=== PATIENT | male | born 1955 | race Caucasian/White ===

== ENCOUNTER → 2016-06-22 | Outpatient (CLI) | payer MEDICARE ==
[~2016-06-22] VITALS: Ht 180.3 cm; Wt 68.0 kg
[~2016-06-22] MED LIST: ASCO25TA PO; BACT800T5 PO; CALC600T21 PO; FOLI1TAB2 PO; LIDOCAINE 2% INJ 100 MG/5 ML SDV (FOR ANES.) As Ordered ONE; NS 1,000 ML IV SCH; OMEP40CA2 PO; PRED5TA PO; PROPOFOL 200 MG/20 ML VIAL As Ordered ONE; RITU10VLL IV; VITA100054 PO
--- NOTE | 2016-06-22 13:17 | ROOR ---
Patient Name: Chris Pearson Procedure Date: 06/22/2016 1:05 PM Date of : 1955 Age: 60 Room: [facility] Gender: Male Note Status: Finalized Procedure: Upper GI endoscopy Indications: Surveillance for malignancy due to personal history of Lobato's esophagus, Heartburn Providers: Telly NICOLE MD Referring MD: Kandice Marlow DO Requesting Provider: Medicines: Monitored Anesthesia Care Complications: No immediate complications. Procedure: Pre-Anesthesia Assessment: - The heart rate, respiratory rate, oxygen saturations, blood pressure, adequacy of pulmonary ventilation, and response to care were monitored throughout the procedure. The Endoscope was introduced through the mouth, and advanced to the second part of duodenum. The upper GI endoscopy was accomplished without difficulty. The patient tolerated the procedure well. Findings: The Z-line was variable. This was biopsied with a cold forceps for histology. The esophagus was normal. The stomach was normal. The examined duodenum was normal. Impression: - Z-line variable. Biopsied. - Normal esophagus. - Normal stomach. - Normal examined duodenum. Recommendation: - Await pathology results. - Continue present medications. Telly Nicole MD Telly NICOLE MD 06/22/2016 1:16:33 PM This report has been signed electronically. Number of Addenda: 0 Note Initiated On: 06/22/2016 1:05 PM Estimated Blood Loss: Estimated blood loss: none.
--- NOTE | 2016-06-22 13:32 | ROOR ---
Patient Name: Chris Pearson Procedure Date: 06/22/2016 1:05 PM Date of : 1955 Age: 60 Room: [facility] Gender: Male Note Status: Finalized Procedure: Colonoscopy Indications: High risk colon cancer surveillance: Personal history of colonic polyps, Last colonoscopy: May 2013 Providers: Telly ORELLANA MD Referring MD: Kandice Marlow DO Requesting Provider: Medicines: Monitored Anesthesia Care Complications: No immediate complications. Procedure: Pre-Anesthesia Assessment: - The heart rate, respiratory rate, oxygen saturations, blood pressure, adequacy of pulmonary ventilation, and response to care were monitored throughout the procedure. The Colonoscope was introduced through the anus and advanced to the terminal ileum, with identification of the appendiceal orifice and IC valve. The colonoscopy was performed without difficulty. The patient tolerated the procedure well. The quality of the bowel preparation was good. Findings: The perianal and digital rectal examinations were normal. (Exam: Complete, Prep: Good or Excellent.) Internal hemorrhoids were found during retroflexion. The hemorrhoids were large. A 6 mm polyp was found in the proximal ascending colon. The polyp was sessile. The polyp was removed with a cold snare. Resection and retrieval were complete. Multiple medium-mouthed diverticula were found in the sigmoid colon. The exam was otherwise without abnormality on direct and retroflexion views. Impression: - (Exam: Complete, Prep: Good or Excellent.) - Internal hemorrhoids. - One 6 mm polyp in the proximal ascending colon, removed with a cold snare. Resected and retrieved. - Diverticulosis in the sigmoid colon. - The examination was otherwise normal on direct and retroflexion views. Recommendation: - Repeat colonoscopy in 3 years for surveillance. Telly Orellana MD Telly ORELLANA MD 06/22/2016 1:32:27 PM This report has been signed electronically. Number of Addenda: 0 Note Initiated On: 06/22/2016 1:05 PM Estimated Blood Loss: Estimated blood loss: none.
[2016-06-22 13:50] VITALS: BP 124/83
== END ==
LOC: M OPP 11:07
PROVIDERS: ATTEND Internal Medicine Gastroenterology
DX: Z12.11 Encounter for screening for malignant neoplasm of colon (principal); Z86.010 Personal history of colon polyps; K64.8 Other hemorrhoids; D12.2 Benign neoplasm of ascending colon; K57.30 Diverticulosis of large intestine without perforation or abscess without bleeding; K22.70 Barrett's esophagus without dysplasia; R12 Heartburn; K22.8 Other specified diseases of esophagus; Z72.0 Tobacco use; K21.9 Gastro-esophageal reflux disease without esophagitis; M31.31 Wegener's granulomatosis with renal involvement; Z79.899 Other long term (current) drug therapy

== ENCOUNTER → 2016-06-29 | Outpatient (CLI) | payer MEDICAID, MEDICARE ==
[~2016-06-29] MED LIST changes: -LIDOCAINE 2% INJ 100 MG/5 ML SDV (FOR ANES.) As Ordered ONE; -NS 1,000 ML IV SCH; -PROPOFOL 200 MG/20 ML VIAL As Ordered ONE
[2016-06-29 16:54] LABS: ANION GAP 9 MEQ/L (8-16); BLOOD UREA NITROGEN 11 MG/DL (7-18); CARBON DIOXIDE LEVEL 27 MEQ/L (21-32); CHLORIDE LEVEL 103 MEQ/L (98-107); CREATININE FOR GFR 0.76 MG/DL (0.70-1.30); GLOMERULAR FILTRATION RATE > 60.0 (>49); GLUCOSE, FASTING 90 MG/DL (80-110); POTASSIUM SERUM 4.3 MEQ/L (3.5-5.1); SODIUM LEVEL 139 MEQ/L (136-145)
== END | disposition home or self-care (01) ==
LOC: M LAB 15:09
PROVIDERS: ATTEND Urology
DX: C67.9 Malignant neoplasm of bladder, unspecified (principal)

== ENCOUNTER → 2016-08-24 | Outpatient (CLI) | payer MEDICARE ==
[~2016-08-24] MED LIST changes: +ISOVUE-370 76% 100ML VIAL (Q9967) As Ordered ONE
--- NOTE | 2016-08-25 09:11 | REP ---
CT of the chest with IV contrast: Comparison is 07/02/2015. There is a spiculated right lower lobe lung nodule measuring 23 mm on image 66. This was also present on the comparison study. Upon re measuring this nodule using similar diameter as on the current study it previously measured 23 mm and is unchanged. There is a 2 cm nodule in the left lower lobe on image 69. This is unchanged from the prior study. There is a surgical staple line in the right upper lobe, unchanged. There is extensive bullous replacement of the lung katz diffusely bilaterally, predominately in the upper lobes compatible with bullous emphysema, unchanged. On the comparison study, a second spiculated lesion was identified in the right lower lobe. Upon review of this area on the current study including review of sagittal coronal reformats, I suspect this spiculation in the right lower lobe is contiguous with the spiculated nodule previously described. This is all unchanged. There are no acute infiltrates or effusions. There is no mediastinal, hilar or axillary lymph node enlargement. Thoracic aorta is unremarkable. Cardiac size is normal. There is no pericardial effusion. The visualized upper abdominal structures are unremarkable. Impression: No significant interval change. Signed by Tyler Flemnig MD 08/25/2016 09:03 A
== END ==
LOC: M RAD 16:36
PROVIDERS: ATTEND Physician Assistant Medical
DX: R91.8 Other nonspecific abnormal finding of lung field (principal)
CPT/HCPCS: 71260; Q9967

== ENCOUNTER → 2017-05-14 | Outpatient (CLI) | payer MEDICARE, MEDICAID ==
[~2017-05-14] MED LIST changes: -CALC600T21 PO; +CALC600T60 PO; -FOLI1TAB2 PO; +FOLI1TAB4 PO; -ISOVUE-370 76% 100ML VIAL (Q9967) As Ordered ONE
--- NOTE | 2017-05-14 11:27 | REP ---
CT CHEST WITHOUT CONTRAST: HISTORY: Abnormal lung field findings. Marnie's granulomatosis. Without renal involvement. Comparison chest CT study August 24, 2016. The most remote prior chest CT study in the patient's electronic x-ray jacket is from september 27, 2008. 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 The right upper lobe 2.3 cm nodule seen on the [address] study has been resected. On today's CT study, there is a new zone of parenchymal opacification laterally adjacent to the suture line in the remaining right upper lobe. This contains a few mottled air bubbles. It is a curvilinear band-like opacity most compatible with inflammatory infiltrate. This does not appear to have mass-like characteristics. This area of consolidation measures 7 cm x 2.5 cm x 1.5 cm. There are advanced emphysematous changes as before. There is a stable spiculated nodule in the right lower lobe. Previously on August 24, 2016 this spiculated density measured 2.3 cm in greatest anteroposterior span. Today, this measures 2.3 cm. There is a left lower lobe spiculated density which is similar. August 24, 2016 measurement for this density was 2.0 cm. On today's CT study, this measurement is 2.0 cm unchanged. No other change in radiographic features is seen in the lung parenchyma. No hilar or mediastinal mass is seen. Vascular calcification is again observed. No adrenal lesion is seen. A gallstone is visible at the bottom of the imaging field of view in the gallbladder. IMPRESSION: There is a new band-like 7 cm zone of opacity adjacent to the post thoracotomy suture line in the right upper lobe consistent with inflammatory consolidation/pneumonia. There are stable spiculated nodules in the lower lobes, one on each side. Unchanged from multiple prior studies. Signed by Kalpesh Ayala MD 05/14/2017 01:37 P
== END ==
LOC: M RAD 09:38
PROVIDERS: ATTEND Internal Medicine Rheumatology
DX: M31.30 Wegener's granulomatosis without renal involvement (principal); R91.8 Other nonspecific abnormal finding of lung field

== ENCOUNTER → 2017-06-11 | Outpatient (CLI) | payer MEDICARE, MEDICAID | LOC: M RAD 14:04 | DX: R91.8 Other nonspecific abnormal finding of lung field (principal); C67.9 Malignant neoplasm of bladder, unspecified | CPT/HCPCS: 71046 ==

== ENCOUNTER → 2017-06-11 | Outpatient (CLI) | payer MEDICARE, MEDICAID ==
[2017-06-11 16:17] LABS: ANION GAP 8 MEQ/L (8-16); BLOOD UREA NITROGEN 17 MG/DL (7-18); CALCIUM LEVEL 8.3 MG/DL (8.8-10.2); CARBON DIOXIDE LEVEL 25 MEQ/L (21-32); CHLORIDE LEVEL 104 MEQ/L (98-107); CREATININE FOR GFR 0.75 MG/DL (0.70-1.30); GLOMERULAR FILTRATION RATE > 60.0 (>49); GLUCOSE, FASTING 133 MG/DL (80-110); POTASSIUM SERUM 4.3 MEQ/L (3.5-5.1); SODIUM LEVEL 137 MEQ/L (136-145)
== END ==
LOC: M LAB 13:54
DX: C67.9 Malignant neoplasm of bladder, unspecified (principal)

== ENCOUNTER → 2019-03-22 | Outpatient (CLI) | payer MEDICARE ==
[~2019-03-22] MED LIST changes: -ASCO25TA PO; +FOLI1TAB11 PO; -FOLI1TAB4 PO; -OMEP40CA2 PO; +OMEP40CA97 PO; +VITA1TAB23 PO
[2019-03-22 11:20] LABS: BLOOD UREA NITROGEN 11 MG/DL (7-18); CREATININE FOR GFR 0.76 MG/DL (0.70-1.30); GLOMERULAR FILTRATION RATE > 60.0 (>49)
== END ==
LOC: M LAB 09:50
PROVIDERS: ATTEND Family Medicine
DX: M54.5 Low back pain (principal)

== ENCOUNTER 2019-05-02 08:08 | Day surgery (SDC) | payer MEDICARE, MEDICAID ==
[~2019-05-02] VITALS: Ht 182.9 cm; Wt 60.3 kg
[~2019-05-02 08:08] MED LIST changes: +CIPR500T3 PO; +METR-265 PO; +NS 1,000 ML IV ONE; +PROL60SO SC
[2019-05-02] MEDS ORDERED: PROPOFOL 200 MG/20 ML VIAL As Ordered ONE ×2 (08:28→09:19)
[2019-05-02] MEDS ORDERED: LIDOCAINE 2% INJ 100 MG/5 ML SDV (FOR ANES.) As Ordered ONE (08:29)
[2019-05-02] MEDS ORDERED: PHENYLephrine HCL 500 MCG/5 ML (100MCG/ML) SYRINGE (J2370) As Ordered ONE (09:01)
--- NOTE | 2019-05-02 09:30 | ROOR ---
Patient Name: Chris Pearson Procedure Date: 05/02/2019 8:54 AM Date of : 1955 Age: 63 Room: [facility] Gender: Male Note Status: Finalized Procedure: Colonoscopy Indications: Anal mass Providers: Telly ORELLANA MD Referring MD: Kandice Marlow DO Requesting Provider: Medicines: Monitored Anesthesia Care Complications: No immediate complications. Procedure: Pre-Anesthesia Assessment: - The heart rate, respiratory rate, oxygen saturations, blood pressure, adequacy of pulmonary ventilation, and response to care were monitored throughout the procedure. The Colonoscope was introduced through the anus and advanced to 10 cm into the ileum. The colonoscopy was performed without difficulty. Findings: The perianal exam findings include 2 cm deep ulceration left perianal mass crossing into anal verge. The digital rectal exam revealed a 2 cm (diameter) firm anal mass. The mass was non-circumferential and located predominantly at the left bowel wall. Biopsies were taken with a cold forceps for histology. The exam was otherwise normal throughout the examined colon. The terminal ileum appeared normal. Impression: - 2 cm wide and deep ulcerated left perianal/anal mass crossing into anal verge found on perianal exam. - Biopsies were taken with a cold forceps for histology. - The colon is otherwise normal. - The examined portion of the ileum was normal. Recommendation: - Refer to a colo-rectal surgeon. - Await pathology results. Telly Orellana MD Telly ORELLANA MD 05/02/2019 9:29:54 AM Electronically signed by Telly ORELLANA MD Number of Addenda: 0 Note Initiated On: 05/02/2019 8:54 AM Estimated Blood Loss: Estimated blood loss: none.
[2019-05-02 09:50] VITALS: BP 125/83
== END 2019-05-02 10:08 | disposition home or self-care (01) ==
LOC: M OPP 08:08
PROVIDERS: ATTEND Internal Medicine Gastroenterology
DX: D12.5 Benign neoplasm of sigmoid colon (principal); D12.3 Benign neoplasm of transverse colon; K64.8 Other hemorrhoids; K57.30 Diverticulosis of large intestine without perforation or abscess without bleeding; C44.520 Squamous cell carcinoma of anal skin; F17.210 Nicotine dependence, cigarettes, uncomplicated; Z79.899 Other long term (current) drug therapy
CPT/HCPCS: 45385; 88305; J2370

== ENCOUNTER → 2019-05-25 | Outpatient (CLI) | payer MEDICARE, MEDICAID ==
[~2019-05-25] MED LIST changes: +GASTROGRAFIN SOLUTION 30ML (Q9963) As Ordered ONE; +ISOVUE-370 76% 100ML VIAL (Q9967) As Ordered ONE; -NS 1,000 ML IV ONE
--- NOTE | 2019-05-25 17:13 | REP ---
Clinical: History of squamous cell carcinoma. Technique: Axial contrast enhanced images from the thoracic inlet to the upper abdomen with coronal and sagittal re-formations using 100 ml Isovue 370 intravenous contrast material. Comparison: 05/14/2017 Findings: Advanced emphysematous changes with scattered fibrosis and scarring is appreciated. Nodular density in the left lower lobe with spiculated margins and is similar smaller nodular density in the right lower lobe with similar marginal spiculations are stable compared to 2017. No further significant nodule or mass lesion appreciated. No consolidation. No effusion. No pneumothorax. Tracheobronchial tree is patent. No significant adenopathy noted. The mediastinum demonstrates normal thoracic aorta, pulmonary vasculature and heart/pericardium. Sagittal images demonstrate compression deformity at L2 of uncertain chronicity. Impression: Advanced emphysematous changes. Stable spiculated lesions in the bilateral lower lobes unchanged from 2017. No evidence for mass or metastatic disease. Compression deformity at L2 of uncertain chronicity. Electronically Signed by Thierry Serrano MD 05/25/2019 05:04 P
--- NOTE | 2019-05-25 17:18 | REP ---
Clinical: Squamous cell carcinoma of the anus. Technique: Axial contrast enhanced images from the lung bases to the pubic symphysis using oral (per protocol) and 100 ml Isovue 370 intravenous contrast material with precontrast and delayed images of the abdomen as well as coronal and sagittal re-formations. Comparison: None. Findings: Liver, spleen, pancreas, bilateral adrenal glands and kidneys are essentially normal. Small bilateral simple renal cysts noted. There is no evidence for bowel obstruction. There is an ostomy via the right anterior abdominal wall consistent with diverting urostomy given the presumed evidence for prior bladder resection. Small amount of fluid and irregularity at the level of the anorectal junction is concerning given history of malignancy. There is a 3 cm pathologic lymph node at the left groin. No ascites. No free air. No further adenopathy. Atherosclerotic changes to the aorta and vasculature noted without aneurysm or dissection. Musculoskeletal structures demonstrate degenerative changes without focal abnormality. Impression: 1. Evidence of prior bladder resection and diverting urostomy via the right anterior abdominal wall. The kidneys are relatively normal and without hydronephrosis. 2. Small amount of fluid and soft tissue irregularity at the anorectal junction along with pathologic 3 cm lymph node in the left groin concerning for metastatic disease/continued malignancy. Electronically Signed by Thierry Serrano MD 05/25/2019 05:09 P
== END ==
LOC: M RAD 14:53
PROVIDERS: ATTEND Surgery
DX: C67.9 Malignant neoplasm of bladder, unspecified (principal); C21.1 Malignant neoplasm of anal canal; M31.30 Wegener's granulomatosis without renal involvement
CPT/HCPCS: 71260; 74178; Q9963; Q9967

== ENCOUNTER → 2019-06-05 | Outpatient (REF) | payer MEDICARE, MEDICAID ==
[~2019-06-05] MED LIST changes: -GASTROGRAFIN SOLUTION 30ML (Q9963) As Ordered ONE; -ISOVUE-370 76% 100ML VIAL (Q9967) As Ordered ONE; +MM S100C PO; +VITA100066 PO
[2019-06-06 16:01] LABS: ALBUMIN 3.5 GM/DL (3.2-5.2); ALT/SGPT 17 U/L (12-78); BILIRUBIN,TOTAL 0.3 MG/DL (0.2-1.0); BLOOD UREA NITROGEN 13 MG/DL (7-18); CALCIUM LEVEL 8.2 MG/DL (8.8-10.2); CARBON DIOXIDE LEVEL 26 MEQ/L (21-32); CHLORIDE LEVEL 102 MEQ/L (98-107); CHOLESTEROL LEVEL 187 MG/DL (<200); CHOLESTEROL RISK RATIO 4.155 (<5); CREATININE FOR GFR 0.75 MG/DL (0.70-1.30); GLOMERULAR FILTRATION RATE > 60.0 (>49); GLUCOSE, FASTING 92 MG/DL (70-100); HDL CHOLESTEROL 45 MG/DL (>40); LDL CHOLESTEROL 120 MG/DL (<100); NON-HDL-C 142 MG/DL; POTASSIUM SERUM 5.8 MEQ/L (3.5-5.1); SODIUM LEVEL 135 MEQ/L (136-145); TOTAL PROTEIN 6.8 GM/DL (6.4-8.2); TRIGLYCERIDES LEVEL 111 MG/DL (<150)
== END ==
LOC: M LAB REF 15:15
PROVIDERS: ATTEND Internal Medicine
DX: E78.5 Hyperlipidemia, unspecified (principal); C67.9 Malignant neoplasm of bladder, unspecified; M31.31 Wegener's granulomatosis with renal involvement; J44.9 Chronic obstructive pulmonary disease, unspecified

== ENCOUNTER → 2019-06-09 | Outpatient (CLI) | payer MEDICARE, MEDICAID ==
--- NOTE | 2019-06-12 10:00 | RADONC ---
RADIATION ONCOLOGY CONSULTATION NOTE DATE OF SERVICE: 06/09/2019 CHART NUMBER: [id number] DIAGNOSIS: Anal cancer. STAGE: Stage in progress, currently clinical stage III C, T3N1M0. ECOG PERFORMANCE STATUS: 1. CONSULTATION NOTE: Mr. Pearson is a 63-year-old white male who has a history of bladder cancer, for which he underwent a cystoprostatectomy on June 25, 2011. He has done well since then but his present history dates back to approximately a year ago when he reported that he fell on ice in early 2018. He then thought he had felt something protruding from his rectum and did not address it thinking it was a bone. This went on for quite some time until the past 3 months or so when the pain began increasing. An MRI was done on 04/10/2019 of the patient's pelvis, which did show a healing fracture in the sacrum. On 05/02/2019, the patient underwent colonoscopy and an anorectal mass was found, which was biopsied and found to be a moderate to poorly differentiated squamous cell carcinoma. CT scans of the chest, abdomen and pelvis were undertaken on 05/25/2019 and showed no definitive evidence for metastatic disease. There was a compression deformity at L2 of uncertain chronicity. There were stable spiculated lesions in the bilateral lower lobes unchanged since 2017. There was noted to be a 3 cm pathologic lymph node in the left groin. The patient reports that this just appeared over the last 2 weeks or so. The patient is now being referred to me for consideration of definitive external beam radiation therapy with IMRT / IGRT with concomitant chemotherapy. The patient does note that he lost approximately 10 pounds of the past couple of months. He describes significant pain at this time and I uncontrollable watery bowel movements. He has no ability to control his bowels at this time secondary to lack of sphincter control. PAST MEDICAL HISTORY: The patient's past medical history is positive for Marnie's granulomatosis, high-grade bladder cancer status post cystoprostatectomy with ileoconduit, GERD, COPD and some type of resection for a benign right lung tumor. The patient has had cataract surgery as well. ALLERGIES: The patient has NO KNOWN DRUG ALLERGIES. SOCIAL HISTORY: The patient had smoked one pack of cigarettes a day for over 40 years. He does not abuse alcohol. FAMILY HISTORY: The patient's family history is positive for a mother with breast cancer and a father with lung cancer. REVIEW OF SYSTEMS: The patient's review of systems is positive for uncontrolled bowels. He is using paper towels continuously. He cannot for diapers. He has physical limitations secondary to his pain. He is quite weak, cachectic and has been losing weight. He has trouble doing just about everything he says. He denies nausea, vomiting, fevers, chills, night sweats, diplopia, headaches, chest pain, urinary problems with his ostomy. Bone pain except in the ligia rectal region. PHYSICAL EXAMINATION The patient is a chronically ill, cachectic, white male who appears in acute discomfort. He is unable to sit straight on his buttocks. HEENT: Exam is normocephalic, atraumatic. Extraocular movements are intact. There is no palpable cervical, supraclavicular, infraclavicular or axillary lymphadenopathy present. There is a large 4 cm fixed left inguinal lymph node present. There is no right inguinal lymphadenopathy. His lungs are clear to auscultation and percussion. His heart has regular rate and rhythm. His abdomen is benign with no hepatosplenomegaly, masses or tenderness. Extremities reveal no clubbing, cyanosis or edema. Perianal and rectal examination reveals a large ulcerated area involving the perirectal region with a deep ulceration. Due to discomfort, I did not attempt to do a digital rectal examination. The lesion is clearly visible and extensive. MEDICAL NECESSITY: IMRT/IGRT is clinically indicated for the highly conformal dose planning required. The target volume is in close proximity to critical structures such as the rectum, bladder, small bowel and femoral heads. The volume of interest must be covered with narrow margins to adequately protect immediately adjacent structures. The plan requires interpretation of complex testing such as CT localization. As noted above, special planning (IMRT) and localizing (IGRT) is required and essential to maximally protect sensitive normal tissue structures which cannot be accomplished using conventional three-dimensional planning. ASSESSMENT: I have scheduled the patient for a CT scan for further staging. I am concerned with the rapid growth according to the patient's history of this lymph node, as well as of his rapid progression in the ligia anal area. Pending results of the PET CT scan, further recommendations will be made. At this time, I do believe the patient is a candidate for definitive external beam radiation therapy and I have so informed him. I have discussed with the patient in detail the potential benefits, as well as possible acute and chronic sequelae of external beam radiation therapy. We discussed logistics of treatment planning, simulation and subsequent fractionated daily radiation treatments. I am scheduling the patient for the next available simulation slot and radiation treatments will begin subsequently. Thank you for allowing us to participate in the care of this very pleasant gentleman. I will keep you informed as to new developments as they occur. As always, warm regards, Tyler Rosa MD cc: DO Telly Rodriguez MD Leno Thomas, MD Jack Alan Ziegler, MD HERK[facility] MEM[facility]IAL HOSPITALGem
== END ==
LOC: M ONCR 08:52
PROVIDERS: ATTEND Radiology Radiation Oncology
DX: C20 Malignant neoplasm of rectum (principal)

== ENCOUNTER → 2019-06-14 | Outpatient (CLI) | payer MEDICARE, MEDICAID ==
--- NOTE | 2019-06-14 19:04 | REP ---
PET/CT: History: Anal cancer staging. Invasive squamous cell carcinoma. Comparisons: Comparison CT chest abdomen pelvis May 25, 2019. TECHNIQUE: 47 minutes following the intravenous injection of a 8.56 mCi dose of F-18 FDG, three-dimensional PET scintigraphy is acquired from the skull base to the proximal thighs. Triplanar noncontrast CT scanning is acquired through the same anatomic range for attenuation correction, and image registration with scan parameters optimized to minimize radiation exposure to the patient. PET scintigraphy and CT datasets were fused and displayed on a workstation with multiplanar and projection display capability. PET/CT Findings: In the head and neck soft tissues, there is a hypermetabolic pre-epiglottic space nodule in the midline vallecular region which must be considered suspicious for primary neoplasm. Maximum standard uptake value is 7.44. The nodule measures 9 mm in right to left dimension. Head and neck soft tissues are otherwise unremarkable. In the chest there is no suspicious abnormality. Stable spiculated nodules are seen, one in each lower lobe. Neither of these is hypermetabolic, maximum SUV value 1.45 and 1.55 on the right and left respectively. There is a fibrotic appearing pleural focus on the right with maximum standard uptake value 1.98. Advanced COPD changes. In the abdomen and pelvis there is normal hepatic and splenic at the FDG distribution. No abnormal retroperitoneal or upper abdominal hypermetabolic adenopathy is seen. The known large anal mass is quite hypermetabolic maximum standard uptake value 13.1. This lesion appears to involve the circumference of the anus and measures 5.0 x 5.1 cm in AP by transverse dimension. No abnormal hypermetabolic uptake is seen within the pelvis. There is a necrotic large hypermetabolic lymph node in the left inguinal soft tissues with maximum standard uptake value 9.42. No abnormal skeletal uptake. Impression: There is a large hypermetabolic circumferential mass in the anus. There is a large peripherally hypermetabolic necrotic lymph node in the left inguinal soft tissues. No other abnormal hypermetabolic uptake. Electronically Signed by Kalpesh Ayala MD 06/14/2019 07:08 P
== END ==
LOC: M PLARAD 12:28
PROVIDERS: ATTEND Internal Medicine Hematology & Oncology
DX: C21.1 Malignant neoplasm of anal canal (principal)
CPT/HCPCS: 78815; A9552

== ENCOUNTER → 2019-06-15 | Outpatient (CLI) | payer MEDICARE, MEDICAID ==
[~2019-06-15] MED LIST changes: +LIDOCAINE 1% MDV 20ML VIAL As Ordered ONE; +MIDAZOLAM INJ 2 MG/2 ML VIAL (J2250) As Ordered ONE; +ceFAZolin 1GM INJ (J0690 PER 500MG) As Ordered ONE; +diphenhydrAMINE INJ 50MG/ML VIAL (J1200) As Ordered ONE; +fentaNYL 100 MCG/2 ML INJECTION (J3010) As Ordered ONE
--- NOTE | 2019-06-15 15:33 | IRHP ---
[facility] IR Pre-Procedure H & P General Date of Service: Jun 15, 2019 Procedure: Same Day Surgery Interval History and Physical I have seen the patient and reviewed last H & P performed within 30 days. There is no significant interval change. History of Present Illness Chief Complaint The patient is a 63-year-old male admitted with a reason for visit of Anal Ca. PRE-PROCEDURE DIAGNOSIS: anal ca HEART: normal rate. LUNGS: normal breathing at rest. ASA Classification ASA Classification: III-Severe systemic dis. Mallampati Score: II NPO: Yes Problems with prior sedation: No Obstructive Sleep Apnea: No Plan moderate sedation Allergies Coded Allergies: No Known Allergies (Unverified , 02/15/13) Home Medications Scheduled Ascorbic Acid (Vitamin C), 500 MG PO DAILY, (Reported) Calcium Carbonate (Calcium), 600 MG PO DAILY, (Reported) Denosumab Injection (Prolia), 60 MG SC EVERY 6 MONTHS, (Reported) Docusate Sodium (Stool Softener), 1 CAP PO DAILY, (Reported) Folic Acid (Folic Acid), 1 MG PO DAILY, (Reported) Omeprazole (Omeprazole), 40 MG PO DAILY, (Reported) Prednisone (Prednisone), 2.5 MG PO DAILY, (Reported) Rituximab (Rituxan), 100 MG IV EVERY 6 MONTHS, (Reported) Sulfamethoxazole/Trimethoprim (Bactrim Ds Tablet), 1 TAB PO BID, (Reported) Miscellaneous Medications Cholecalciferol (Vitamin D3) (Vitamin D3), 2,000 UNIT PO, (Reported) VS, I&O, 24H, Fishbone Vital Signs/I&O Vital Signs Date Time Temp Pulse Resp B/P (MAP) Pulse Ox O2 Delivery O2 Flow Rate FiO2 06/15/19 15:18 94 6 9 Room Air MAHOGANY AVERY MD Jun 15, 2019 15:33
--- NOTE | 2019-06-15 16:32 | POST-OPPD ---
Postoperative Procedure Note Date Of Procedure: Jun 15, 2019 Time Of Procedure: 16:31 PREOPERATIVE DIAGNOSIS: anal ca POSTOPERATIVE DIAGNOSIS: same FINDINGS: patent right IJ PROCEDURE: right side port SURGEON: tita ANESTHESIA: mod sed ESTIMATED BLOOD LOSS: < 5 ml COMPLICATIONS: none POSTOPERATIVE CONDITION: stable MAHOGANY AVERY MD Jun 15, 2019 16:32
[2019-06-15 18:18] VITALS: BP 128/72
--- NOTE | 2019-06-16 14:35 | REP ---
IR Ultrasound and fluoroscopy-guided port placement. IR Ultrasound of the neck. IR Moderate sedation. Clinical information: Anal cancer. Physician: Dr. Lopes. Procedure: The patient was advised of the benefits, risks, and alternatives of the procedure and informed consent was obtained. A time-out was performed with verification of the patient's name, MRN, site of procedure and type of procedure to be performed. The patient was positioned in the supine position on the angiographic table. The site was prepped and draped in the usual sterile fashion. Moderate sedation was performed by the physician including the presence of an independent trained observer who assisted and monitored the patient's level of consciousness and physiologic status. Following the administration of fentanyl and Versed, the physician spent 45 minutes of continuous face to face time with the patient. Ultrasound of the neck reveals a patent and compressible right internal jugular vein. A media law faculty member radiograph reveals markings in the right lung. The neck and anterior chest wall were anesthetized with lidocaine. The right internal jugular vein was accessed using a microintroducer needle under ultrasound guidance, via a lateral approach. An 018 wire was advanced into the superior vena cava, the needle was removed and a microsheath was placed. An Amplatz wire was then passed into the inferior vena cava. An incision at the internal jugular vein access site and anterior chest wall were made using a scalpel. An incision was made at the anterior chest wall. A small pocket was created using a combination of blunt and sharp dissection. A tunneling device was then used to pass the catheter from the pocket to the neck puncture site. An 8-[employer] smart power port was then positioned in the pocket. The catheter was then measured and cut. The introducer sheath was exchanged for a peel-away sheath. The catheter was passed through the peel-away sheath into the internal jugular vein and the peel-away sheath was removed. The port tip was positioned at the cavo atrial junction. The port was then accessed with a Grijalva needle. The port flushes and aspirates well. The puncture site in the neck was closed. The chest wall incision was then closed with 2-0 Vicryl and 4-0 Monocryl. Glue and Steri-Strips were applied. A sterile dressing was then applied. The patient tolerated the procedure well and was returned to the PRU in stable condition. Estimated blood loss: <5 ml. Complications: None. Conclusion: 1. Successful placement of an 8-[employer] smart power port via the right internal jugular vein. The port is ready for immediate use. 2. Patient to follow up in IR clinic in 2 weeks. Thank you for this referral. Electronically Signed by Cathy Lopes MD 06/16/2019 02:34 P
== END ==
LOC: M IRPRO 14:23
PROVIDERS: ATTEND Internal Medicine Hematology & Oncology
DX: C21.0 Malignant neoplasm of anus, unspecified (principal)
CPT/HCPCS: 36561; 99152; 99153; C1769; C1788; C1894; J0690; J1200; J2250; J3010

== ENCOUNTER 2019-06-19 10:24 | Outpatient (RCR) | payer MEDICARE, MEDICAID ==
[~2019-06-19 10:24] MED LIST changes: -LIDOCAINE 1% MDV 20ML VIAL As Ordered ONE; -MIDAZOLAM INJ 2 MG/2 ML VIAL (J2250) As Ordered ONE; -ceFAZolin 1GM INJ (J0690 PER 500MG) As Ordered ONE; -diphenhydrAMINE INJ 50MG/ML VIAL (J1200) As Ordered ONE; -fentaNYL 100 MCG/2 ML INJECTION (J3010) As Ordered ONE
--- NOTE | 2019-06-20 15:43 | RADONC ---
RADIATION ONCOLOGY SIMULATION NOTE DATE: 06/19/2019 CHART NUMBER: [id number] SIMULATION NOTE: Mr. Pearson was taken to the CT scan for CT simulation of his anal field. CT was accomplished without difficulty or discomfort. Radiation treatment planning is underway and radiation treatments will begin subsequently. An immobilization device was created and will be used throughout the course of treatment. It was created without difficulty or discomfort. I was physically present throughout the course of CT simulation.
[2019-06-27] MEDS ORDERED: ONDA8TAB10 PO (11:04)
== END 2019-06-23 ==
LOC: M ONCR 10:24
PROVIDERS: ATTEND Radiology Radiation Oncology
DX: C21.1 Malignant neoplasm of anal canal (principal)

== ENCOUNTER → 2019-06-27 | Outpatient (POV) | payer MEDICARE, MEDICAID ==
[~2019-06-27] VITALS: Ht 180.3 cm; Wt 60.9 kg
[~2019-06-27] MED LIST changes: +ONDA8TAB10 PO; +PERC5TAB12 PO; +SILV40CR EXT; +VITAD1000T PO
[2019-06-27 08:20] VITALS: BP 120/76
--- NOTE | 2019-06-28 09:47 | IRPN ---
[facility] IR Progress Note IR Progress Note DATE: Jun 27, 2019 FOLLOW-UP: Status post port placement. Patient doing well. No fevers or chills. Port is functioning. ON EXAMINATION: Port site appears to be healing well. No tenderness, redness, fluctuance or discharge. IMPRESSION: Doing well status post port placement. No further follow-up scheduled unless initiated by patient or referring provider. Thank you for this referral Allergies Coded Allergies: No Known Allergies (Unverified , 02/15/13) VS,Fishbone, I+O VS, Fishbone, I+O Vital Signs Date Time Temp Pulse Resp B/P (MAP) Pulse Ox O2 Delivery O2 Flow Rate FiO2 06/27/19 08:20 97.6 122 18 120/76 (91) 95 Room Air MAHOGANY AVERY MD Jun 28, 2019 09:47
== END ==
LOC: M IRPOV 08:04
PROVIDERS: ATTEND Radiology Diagnostic Radiology
DX: Z45.2 Encounter for adjustment and management of vascular access device (principal)

== ENCOUNTER 2019-07-20 11:24 | Outpatient (RCR) | payer MEDICARE, MEDICAID ==
--- NOTE | 2019-07-03 12:50 | RADONC ---
RADIATION ONCOLOGY DATE: 07/03/2019 CHART NUMBER: [id number] Mr. Pearson carries a diagnosis of anal cancer. He is currently on chemo-RT. So far he has received a dose of 900 cGy. He complains of significant pain and has difficulty sitting, and he has loose bowel movements. He does not have blood in the stool. So far, he has no weight changes. REVIEW OF SYSTEMS: He denies nausea, vomiting, fever, chills, night sweats, anorexia, weight loss, urinary problems, but as mentioned he has loose bowel movements and pain in the anal area. I advised sitz bathes and use of hydrocortisone cream. PHYSICAL EXAMINATION: He is an emaciated man, still smoking. He has difficulty sitting flat. There is no significant skin changes noted. Mr. Pearson is a patient who carries the diagnosis of anal cancer. He is experiencing pain in the anal area and having problems sitting flat. He is currently taking Tylenol with little help. I advised sitz bathes and use of hydrocortisone cream. Also, I discussed diarrhea for his bowel movements. The treatment will continue as planned. MTDD
--- NOTE | 2019-07-11 10:17 | RADONC ---
RADIATION ONCOLOGY DATE: 07/10/2019 CHART NUMBER: [id number] Mr. Pearson carries the diagnosis of anal cancer. He is currently on chemo RT So far he has received a dose of 1620 cGy in 180 cGy daily fractions. He has significant pain in the anal area and also frequency of bowel movement. He does not have blood in the stool. He said he has no recent weight changes. REVIEW OF SYSTEMS: He denies nausea, fever, chills, night sweats, anorexia. He as loose bowel movements and significant pain in the anal area for which I recommend Sitz bath and use of hydrocortisone cream. PHYSICAL EXAMINATION: He is emaciated. He has difficulty sitting straight. There is no significant skin changes noted. He weighs 137 pounds, blood pressure 129/75, pulse 103, respiration 18, temperature 98.3, oxygen saturation is 94% in room air. ASSESSMENT/PLAN: Mr. Pearson has so far received a dose of 1620 cGy. He is experiencing significant pain in the anal area and also loose bowel movement. I advised the Sitz bath and use of hydrocortisone cream, also I recommend to use Imodium AD. Treatment will continue as planned. MTDD
--- NOTE | 2019-07-18 10:24 | RADONC ---
RADIATION ONCOLOGY PROGRESS NOTE DATE OF SERVICE: 07/17/2019 CHART NUMBER: [id number] Mr. Pearson is presently a dose of 2520 cGy to his anus and is tolerating treatments quite well at this point with no complaints related to his radiation therapy. He has had a marked improvement in his anal discomfort. The patient's review of systems is positive for some continued anal discomfort but is otherwise noncontributory. Denies nausea, vomiting, fevers, chills, night sweats, diplopia, headaches, anxiety or depression, anorexia, weight loss, visual disturbances, chest pain, urinary or bowel difficulties, bone pain, or neurological problems. PHYSICAL EXAMINATION The patient's skin overall is in good condition with no evidence of moist or dry desquamation. The remainder of his physical exam is largely unchanged. Mr. Pearson is tolerating treatments quite well and radiation will continue as scheduled.
[~2019-07-20 11:24] MED LIST changes: -SILV40CR EXT; -VITAD1000T PO
== END 2019-07-22 ==
LOC: M ONCR 11:24
PROVIDERS: ATTEND Radiology Radiation Oncology
DX: C21.1 Malignant neoplasm of anal canal (principal)

== ENCOUNTER 2019-08-11 11:24 | Outpatient (RCR) | payer MEDICARE, MEDICAID ==
--- NOTE | 2019-08-01 16:02 | RADONC ---
RADIATION ONCOLOGY PROGRESS NOTE DATE: 07/31/2019 CHART NUMBER: [id number] Mr. Pearson is presently at a dose of 4140 cGy to his anus and is tolerating his treatments well but continues to have anal pain. The patient continues to have his anal pain which is actually gone on for quite some time long before the radiation was initiated. His review of systems is otherwise noncontributory except lack of control of his bowel movements. He denies nausea, vomiting, fevers, chills, night sweats, diplopia, headaches, anxiety or depression, anorexia, weight loss, visual disturbances, chest pain, urinary or bowel difficulties, bone pain, or neurological problems. PHYSICAL EXAMINATION: The patient's skin shows areas of moist desquamation. There is still the smell of necrotic tissue present. His ulcerative lesion appears to be shrinking. There is some radiation tanning present over the remainder of the treatment field and the remainder of his physical exam remains unchanged. ASSESSMENT: The patient has pain from his original ulcerated lesion which is also lead to lack of bowel control. The bowel control lack has not improved. His discomfort of the radiated skin has not added significantly to the pain he already had from his ulcerative lesion. In light of this radiation will continue. He is approaching completion of therapy. The patient also had on his PET scan an area in the larynx which was hypermetabolic. The patient and his sister have discussed this with me on multiple occasions. He has been referred to Dr. Estrada's office for evaluation of that but does not wish to undertake that until he completes radiation to his anus. Radiation will continue as scheduled.
--- NOTE | 2019-08-03 10:09 | RADONC ---
RADIATION ONCOLOGY SIMULATION NOTE DATE: 08/02/2019 CHART #: [id number] Mr. Pearson was taken to the CT scan for clinical setup of his inguinal electron boost. Setup was accomplished without difficulty or discomfort. Radiation treatment planning is underway and radiation treatments will begin subsequently. An immobilization device was made and will be used throughout the course of treatment. It was made without difficulty or discomfort. I was present throughout clinical setup simulation.
--- NOTE | 2019-08-08 12:06 | RADONC ---
RADIATION ONCOLOGY PROGRESS NOTE DATE OF SERVICE: 08/07/2019 CHART NUMBER: [id number] Mr. Pearson, with a diagnosis of anal cancer, is currently receiving local regional radiotherapy. He originally had a stage III C, T3N1M0 cancer of the anal area. He was referred for IMRT IGRT with concomitant chemotherapy, which he has been receiving and has been it has been relatively well tolerated, although he does complain of discomfort and occasional loose stools but denies any significant bleeding. His energy level is diminished, but he still able to maintain some day-to-day activities. EXAMINATION FINDINGS: The skin within the irradiated volume shows no significant desquamation with only minimal patchy erythema. No areas of ulceration are noted. There is some tanning effect within the irradiated area. The remainder of the physical examination is unchanged. IMPRESSION: Tolerating therapy reasonably well. PLAN: Treatments to continue.
[~2019-08-11 11:24] MED LIST changes: +SILV40CR EXT
--- NOTE | 2019-08-12 12:03 | RADONC ---
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 PLAN OF RADIOTHERAPY: Definitive local regional radiotherapy. DATE RADIOTHERAPY STARTED: 06/27/2019 DATE RADIOTHERAPY COMPLETED: 08/11/2019 DOSE: The patient received a total initially of 5040 cGy administered in 28 fractions over 43 elapsed days via a 15MV photon beam. Thereafter, he received an additional boost to the anus and the left inguinal areas of 540 cGy and 600 cGy respectively. These additional boost doses brought the anus up to total dose of 5580 cGy and the left inguinal area to a 5600cGy dose. The anus was boosted with a 15MV photon beam, whereas the left inguinal area with a 16MeV electron beam. Both boosts area were delivered in 3 fractions over 3 elapsed days. The additional anal dose was calculated to the 95% isodose line; whereas the inguinal dose to the 90% isodose. STATUS OF TUMOR: These treatments were well tolerated and there was no clinical evidence of distant metastatic spread during the course of radiotherapy, and evaluation for local regional control will be determined with future surveillance and examination findings. TOLERANCE: In general, treatments were tolerated as would be anticipated with difficulty with skin reaction as this is a very difficult area to treat. The patient did improve with brief interruption from radiotherapy to allow his skin area to heal. DISPOSITION: Return to clinic in approximately 1 month or p.r.n., and he was advised to return to his referring physicians as per their directions and instructions. LARISAD
[2019-08-23] MEDS ORDERED: VITAD1000T PO (13:31)
== END 2019-08-22 ==
LOC: M ONCR 11:24
PROVIDERS: ATTEND Radiology Radiation Oncology
DX: C21.1 Malignant neoplasm of anal canal (principal)

== ENCOUNTER → 2019-09-12 | Outpatient (CLI) | payer MEDICARE, MEDICAID ==
[~2019-09-12] MED LIST changes: +VITAD1000T PO
[2019-09-12 14:29] LABS: BASO % 0.3 % (0.0-1.0); EOS % 0.6 % (0.0-3.0); HEMATOCRIT 39.9 % (42.0-52.0); HEMOGLOBIN 13.7 g/dl (13.5-17.5); LYMPH # 0.4 10^3/uL (1.5-5.0); LYMPH % 5.8 % (24.0-44.0); MEAN CORPUSCULAR HEMOGLOBIN 36.1 pg (27.0-33.0); MEAN CORPUSCULAR HGB CONC 34.3 g/dl (32.0-36.5); MEAN CORPUSCULAR VOLUME 105.3 fl (80.0-96.0); MONO # 0.9 10^3/uL (0.0-0.8); MONO % 12.1 % (0.0-5.0); NEUTROPHILS # 5.8 10^3/uL (1.5-8.5); NEUTROPHILS % 80.8 % (36.0-66.0); PLATELET COUNT, AUTOMATED 150 10^3/uL (150-450); RED BLOOD COUNT 3.79 10^6/uL (4.30-6.10); WHITE BLOOD COUNT 7.2 10^3/uL (4.0-10.0)
[2019-09-12 14:49] LABS: ALBUMIN 3.4 GM/DL (3.2-5.2); ALT/SGPT 21 U/L (12-78); CALCIUM LEVEL 8.1 MG/DL (8.8-10.2); CREATININE FOR GFR 0.73 MG/DL (0.70-1.30); GLOMERULAR FILTRATION RATE > 60.0 (>49)
[2019-09-12 14:54] LABS: ERYTHROCYTE SEDIMENTATION RATE 59 mm/hr (0-20)
== END ==
LOC: M LAB 13:57
PROVIDERS: ATTEND Physician Assistant Medical
DX: M31.31 Wegener's granulomatosis with renal involvement (principal); M81.8 Other osteoporosis without current pathological fracture; Z79.899 Other long term (current) drug therapy

== ENCOUNTER → 2019-09-19 | Outpatient (CLI) | payer MEDICARE, MEDICAID ==
[~2019-09-19] MED LIST changes: +GASTROGRAFIN SOLUTION 30ML (Q9963) As Ordered ONE; +ISOVUE-370 76% 100ML VIAL As Ordered ONE
--- NOTE | 2019-09-19 15:25 | REP ---
CT ABDOMEN AND PELVIS WITH ORAL AND IV CONTRAST: TECHNIQUE: Axial contrast enhanced images from the lung bases to the pubic symphysis using 100 mL Isovue-370 intravenous contrast material with multiplanar reformations. COMPARISON: 05/25/2019 Visualized lung bases demonstrate diffuse interstitial fibrosis. No mass is seen in the liver. There are gallstones in the gallbladder. The spleen is normal in size with no intrinsic abnormality. Adrenal glands appear mildly thickened and unchanged. Pancreas demonstrates no mass or pancreatic duct dilatation. Common bile duct is not dilated. Tiny hypodensities in the kidneys likely represent small cysts, too small to characterize. There is no hydronephrosis. There is atherosclerotic calcification of the abdominal aorta without aneurysm. No periaortic adenopathy is seen. In the left inguinal region, there is a necrotic soft tissue mass which has decreased in size. It currently measures 1.9 x 2.4 cm, previously 2.6 x 3.2 cm. Ostomy is noted in the right anterior abdominal wall. Previously noted mass-like thickening of the rectum/anus appears significantly improved. There are degenerative changes of the spine. Old compression deformity of L2 is stable. IMPRESSION: Previously noted necrotic left inguinal mass has decreased in size as discussed above. Previously noted mass-like thickening of the rectum/anus has also improved. Gallstones seen in the gallbladder. There are tiny hypodensities in the kidneys likely representing small cysts. Electronically Signed by Tyler Powell MD 09/19/2019 03:32 P
== END ==
LOC: M RAD 11:28
PROVIDERS: ATTEND Internal Medicine Hematology & Oncology
DX: C20 Malignant neoplasm of rectum (principal)
CPT/HCPCS: 74177; Q9963; Q9967

== ENCOUNTER → 2019-09-27 | Outpatient (CLI) | payer MEDICARE, MEDICAID ==
[~2019-09-27] MED LIST changes: -GASTROGRAFIN SOLUTION 30ML (Q9963) As Ordered ONE; -ISOVUE-370 76% 100ML VIAL As Ordered ONE
--- NOTE | 2019-09-30 15:30 | RADONC ---
RADIATION ONCOLOGY FOLLOWUP NOTE DATE: 09/27/2019 This is a telemedicine visit. The patient was informed of the risks including security breech, technological failure, inability to perform a comprehensive physical exam which could delay or prevent an accurate diagnosis, and potential complications from treatment decisions rendered over a telemedicine platform. The patient understands and consented to the use of telehealth services phone only. CHART NUMBER: [id number] DIAGNOSIS: Anal cancer. STAGE: IIIC, T3, N1, M0. ECOG PERFORMANCE STATUS: 1 Mr. Pearson is a very pleasant 63-year-old white male with a history of bladder cancer as well as his anal cancer, who is presenting to me for followup visit approximately 6 weeks post completion of external beam radiation therapy. The patient presents today reporting that he was seen by the head and neck surgeon to initiate evaluation for his positive PET/CT scan. The patient reports that he is scheduled to be seen again by the ENT service for biopsy and further workup of that head and neck issue. The patient is scheduled see Dr. Chowdary, his colorectal surgeon, next week on October 05 at 9:30 to continue his close followup of his anal cancer. In addition, the patient reports that he was just seen by his medical oncologist, Dr. Denny, last week as well. The patient reports that his anal area has healed up completely and that he is able to sit and has much less discomfort. He does not have any diarrhea at the present time, or blood in the stools. Overall, he feels like he is improving. The patient's review of systems is continuing to be positive for his general physical limitations but is otherwise basically noncontributory. He denies nausea, vomiting, fevers, chills, night sweats, diplopia, headaches, anxiety, depression, anorexia, visual disturbances, chest pain. PHYSICAL EXAMINATION: Physical exam was deferred at this time as per COVID-19 precautions. This was a telephone followup visit. ASSESSMENT: The patient is reporting that he is doing quite well. He is being seen by his ENT specialist for workup of the positive area on his PET scan. In addition, he is being followed closely by Dr. Maxim Chowdary for followup of his anal cancer. He is also continuing his followup with was medical oncologist. I have therefore set him up to be seen in our office in 3-4 months' time as well. The patient has my cell phone number and office number and I am than glad to see him in person if he has any questions or issues. I will be retiring in the next couple of months and will be seeing our new radiation oncologist, Dr. Franco. cc: DO Malachi Rodriguez MD Gerald Colvin, MD David Reindl, MD Jack Alan Ziegler, MD
== END ==
LOC: M ONCR 11:27
PROVIDERS: ATTEND Radiology Radiation Oncology
DX: C21.1 Malignant neoplasm of anal canal (principal)

== ENCOUNTER → 2019-11-01 | Outpatient (REF) | payer MEDICARE, MEDICAID ==
[2019-11-02 13:57] LABS: BASOPHILS 1 % (0-1); EOSINOPHILS 2 % (0-3); LYMPHOCYTES 22 % (16-44); MONOCYTES 1 % (0-5); NEUTROPHILS 74 % (28-66)
[2019-11-02 13:58] LABS: ANISOCYTOSIS 1+; PLATELET ESTIMATE NORMAL (NORMAL); POLYCHROMASIA 1+
== END ==
LOC: M LAB REF 12:54
PROVIDERS: ATTEND Family Medicine
DX: D72.9 Disorder of white blood cells, unspecified (principal)

== ENCOUNTER → 2019-11-03 | Outpatient (CLI) | payer MEDICARE, MEDICAID | LOC: M LABSMTC 10:09 | PROVIDERS: ATTEND Anesthesiology | DX: Z03.818 Encounter for observation for suspected exposure to other biological agents ruled out (principal); Z11.59 Encounter for screening for other viral diseases | CPT/HCPCS: C9803; U0003 ==

== ENCOUNTER 2019-11-06 09:43 | Day surgery (SDC) | payer MEDICARE, MEDICAID ==
[~2019-11-06] VITALS: Ht 180.3 cm; Wt 60.8 kg
[~2019-11-06 09:43] MED LIST changes: +LIDOCAINE 1% MDV 20ML VIAL SQ PRN
[2019-11-06] MEDS ORDERED: LR 1,000 ML IV ONE (10:30)
[2019-11-06] MEDS ORDERED: ALBUTEROL SULFATE 2.5 MG/0.5 ML INH NEB SOLN As Ordered ONE (11:10)
[2019-11-06] MEDS ORDERED: ALBUTEROL SULFATE 2.5 MG/0.5 ML INH NEB SOLN INH ONE (11:15)
[2019-11-06] MEDS ORDERED: ONDANSETRON 4MG/2ML VIAL As Ordered ONE (11:32)
[2019-11-06] MEDS ORDERED: dexameTHASONE 4 MG/ML 1ML VIAL (J1100 PER 1MG) As Ordered ONE (11:32)
[2019-11-06] MEDS ORDERED: MIDAZOLAM INJ 2MG/2ML VIAL (J2250 PER 1MG) As Ordered ONE (11:32)
[2019-11-06] MEDS ORDERED: CETACAINE SPRAY 5GM As Ordered ONE (12:01)
[2019-11-06] MEDS ORDERED: EPINEPHrine 1MG/ML INJ 30ML MD-VIAL As Ordered ONE (12:02)
[2019-11-06] MEDS ORDERED: METHYLENE BLUE 0.5% (5MG/ML) 10 ML AMP (PROVAYBLUE) As Ordered ONE (12:02)
[2019-11-06] MEDS ORDERED: LR 1,000 ML IV SCH (13:00)
[2019-11-06] MEDS ORDERED: METOCLOPRAMIDE INJ 10MG/2ML VIAL (J2765 PER 1) IV PRN (13:00)
[2019-11-06] MEDS ORDERED: HYDROcodone/APAP LIQUID 7.5-325MG 15ML UDC (LORTAB ELIXIR) PO PRN (13:00)
[2019-11-06] MEDS ORDERED: fentaNYL 100 MCG/2 ML INJECTION (J3010) IV PRN (13:00)
[2019-11-06] MEDS ORDERED: ONDANSETRON 4MG/2ML VIAL IV PRN (13:00)
[2019-11-06 14:16] VITALS: BP 99/65
== END 2019-11-06 14:19 | disposition home or self-care (01) ==
LOC: M SDC 09:43
PROVIDERS: ATTEND Specialist
DX: D38.5 Neoplasm of uncertain behavior of other respiratory organs (principal); J44.9 Chronic obstructive pulmonary disease, unspecified; M31.31 Wegener's granulomatosis with renal involvement; M81.8 Other osteoporosis without current pathological fracture; F17.218 Nicotine dependence, cigarettes, with other nicotine-induced disorders; K21.9 Gastro-esophageal reflux disease without esophagitis; Z79.899 Other long term (current) drug therapy; Z79.52 Long term (current) use of systemic steroids; C20 Malignant neoplasm of rectum; Z92.21 Personal history of antineoplastic chemotherapy; Z92.3 Personal history of irradiation; Z85.51 Personal history of malignant neoplasm of bladder
CPT/HCPCS: 31536; 88305; 88342; J1100; J2250; J2405; Q9968

== ENCOUNTER → 2019-11-07 | Outpatient (CLI) | payer MEDICARE, MEDICAID ==
[~2019-11-07] MED LIST changes: -LIDOCAINE 1% MDV 20ML VIAL SQ PRN
--- NOTE | 2019-11-07 16:09 | REP ---
PET/CT: HISTORY: Restaging rectal carcinoma. COMPARISONS: Comparison PET/CT study June 14, 2019. Comparison CT abdomen and pelvis September 19, 2019. TECHNIQUE: 49 minutes following the intravenous injection of a 8.66 mCi dose of F-18 FDG, three-dimensional PET scintigraphy is acquired from the skull base to the proximal thighs. Triplanar noncontrast CT scanning is acquired through the same anatomic range for attenuation correction, and image registration with scan parameters optimized to minimize radiation exposure to the patient. PET scintigraphy and CT datasets were fused and displayed on a workstation with multiplanar and projection display capability. PET/CT FINDINGS: Head and neck soft tissues are unremarkable. The previously noted supraglottic focus is no longer apparent. There is an Mujwjn-S-Wsko catheter noted on the right. Scattered areas of normal variant skeletal muscle uptake are seen. There is no abnormal hilar or mediastinal uptake. There does appear to have been progression of pulmonary nodules with two or three new nodules in the left lower lobe and multiple nodules showing mildly hypermetabolic uptake ranging up to 3.42. Several pulmonary nodules again show low-level non hypermetabolic uptake as well. No abnormal hypermetabolic uptake is seen in the liver. There is no upper abdominal or pelvic retroperitoneal jeff uptake. Uptake is seen associated with the patient's right lower quadrant enterostomy. The previously noted hypermetabolic anal and perianal uptake is much improved. There is some residual hypermetabolic uptake. Maximum standard uptake value 6.82. There is also improvement in the adenopathy in the left inguinal region. Mildly hypermetabolic uptake persist persists here with maximum standard uptake value 3.77. No new adenopathy is appreciated. IMPRESSION: Significant improvement noted in the primary anal mass and in the left inguinal adenopathy. There are new pulmonary nodules however and there is mildly hypermetabolic uptake in several pulmonary nodules today as a change from the prior study. Electronically Signed by Kalpesh Ayala MD 11/08/2019 08:10 A
== END ==
LOC: M PLARAD 10:29
PROVIDERS: ATTEND Internal Medicine Hematology & Oncology
DX: C20 Malignant neoplasm of rectum (principal); R91.8 Other nonspecific abnormal finding of lung field; R59.0 Localized enlarged lymph nodes
CPT/HCPCS: 78815; A9552

== ENCOUNTER → 2019-12-14 | Outpatient (CLI) | payer MEDICARE, MEDICAID ==
[~2019-12-14] MED LIST changes: +ADV250INH INH; +PANT40TA3 PO; +PRED10TA2 PO
--- NOTE | 2019-12-14 09:29 | REP ---
CT CHEST WITHOUT CONTRAST: HISTORY: Restaging anal carcinoma. Comparison chest CT study May 25, 2019. CT FINDINGS: There are numerous new ill-defined and cavitary bilateral pulmonary nodules consistent with progressive metastatic disease. The previously noted spiculated nodular opacity in the left lower lobe has increased in size. The previously noted spiculated nodular opacity in the right lower lobe is felt to be unchanged. There are multiple new nodules bilaterally. Advanced emphysematous changes are again noted. There is a right-sided Wxyijh-P-Twas. No hilar enlargement is appreciated on this noncontrast study. Vascular calcifications noted. There is a small amount of left pleural fluid which is a new finding. There is a small quantity of pericardial fluid slightly increased. Opaque gallstones visible in the gallbladder. No adrenal lesion is seen. No focal liver lesion is seen in the visualized portion of the liver. No bony destructive lesion is seen. IMPRESSION: Numerous new irregular and cavitary pulmonary nodules present bilaterally consistent with progressive metastatic disease. New small amount of left pleural fluid. Advanced COPD changes. Electronically Signed by Kalpesh Ayala MD 12/14/2019 09:46 A
== END ==
LOC: M RAD 08:14
PROVIDERS: ATTEND Internal Medicine Hematology & Oncology
DX: C21.0 Malignant neoplasm of anus, unspecified (principal)

== ENCOUNTER 2019-12-22 15:50 | Inpatient (IN) | payer MEDICARE, MEDICAID ==
[~2019-12-22 15:50] MED LIST changes: -ADV250INH INH; +D31000TA2 PO; +ISOVUE-370 76% 100ML VIAL As Ordered ONE; -PANT40TA3 PO; -PRED10TA2 PO; -VITA1TAB23 PO; +VITA250T20 PO; -VITAD1000T PO
[2019-12-22] MEDS ORDERED: methylPREDNISolone 125MG 2ML VIAL ONE ×2 (15:52→23:53)
[2019-12-22] MEDS ORDERED: methylPREDNISolone 125MG 2ML VIAL As Ordered ONE ×2 (15:52→23:54)
[2019-12-22] MEDS ORDERED: HEPARIN SOD (PORCINE) 5000UNITS/ML 1ML VIAL/SYRINGE As Ordered ONE (22:38)
[2019-12-22] MEDS ORDERED: HEPARIN SOD (PORCINE) 5000UNITS/ML 1ML VIAL/SYRINGE ONE (22:38)
[2019-12-22] MEDS ORDERED: cefTRIAXone SOD 1GM VIAL (J0696 PER 250MG) ONE (23:53)
[2019-12-22] MEDS ORDERED: cefTRIAXone SOD 1GM VIAL (J0696 PER 250MG) As Ordered ONE (23:53)
[2019-12-23] MEDS ORDERED: CLINDAMYCIN 600 MG/50 ML PREMIX BAG As Ordered ONE ×3 (00:48→15:23)
[2019-12-23] MEDS ORDERED: CLINDAMYCIN 600 MG/50 ML PREMIX BAG ONE ×3 (00:48→15:22)
[2019-12-23] MEDS ORDERED: METAL LOCK LOOP XX ONE (02:33)
[2019-12-23] MEDS ORDERED: HEPARIN SOD (PORCINE) 5000UNITS/ML 1ML VIAL/SYRINGE As Ordered ONE ×3 (07:01→22:35)
[2019-12-23] MEDS ORDERED: HEPARIN SOD (PORCINE) 5000UNITS/ML 1ML VIAL/SYRINGE ONE ×3 (07:01→22:35)
[2019-12-23] MEDS ORDERED: methylPREDNISolone 125MG 2ML VIAL As Ordered ONE ×2 (09:08→15:23)
[2019-12-23] MEDS ORDERED: methylPREDNISolone 125MG 2ML VIAL ONE ×2 (09:08→15:22)
[2019-12-23] MEDS ORDERED: PANTOPRAZOLE 40MG TAB (PROTONIX) ONE (09:08)
[2019-12-23] MEDS ORDERED: PANTOPRAZOLE 40MG TAB (PROTONIX) As Ordered ONE (09:08)
[2019-12-23] MEDS ORDERED: cefTRIAXone SOD 1GM VIAL (J0696 PER 250MG) ONE (22:35)
[2019-12-23] MEDS ORDERED: cefTRIAXone SOD 1GM VIAL (J0696 PER 250MG) As Ordered ONE (22:36)
[2019-12-24] MEDS ORDERED: methylPREDNISolone 125MG 2ML VIAL ONE ×4 (00:04→22:59)
[2019-12-24] MEDS ORDERED: methylPREDNISolone 125MG 2ML VIAL As Ordered ONE ×3 (00:04→15:40)
[2019-12-24] MEDS ORDERED: CLINDAMYCIN 600 MG/50 ML PREMIX BAG ONE ×4 (00:04→22:59)
[2019-12-24] MEDS ORDERED: CLINDAMYCIN 600 MG/50 ML PREMIX BAG As Ordered ONE ×3 (00:05→15:40)
[2019-12-24] MEDS ORDERED: HEPARIN SOD (PORCINE) 5000UNITS/ML 1ML VIAL/SYRINGE ONE ×3 (05:43→22:59)
[2019-12-24] MEDS ORDERED: HEPARIN SOD (PORCINE) 5000UNITS/ML 1ML VIAL/SYRINGE As Ordered ONE ×2 (05:43→15:41)
[2019-12-24] MEDS ORDERED: PANTOPRAZOLE 40MG TAB (PROTONIX) ONE (08:55)
[2019-12-24] MEDS ORDERED: PANTOPRAZOLE 40MG TAB (PROTONIX) As Ordered ONE (08:55)
[2019-12-24] MEDS ORDERED: cefTRIAXone SOD 1GM VIAL (J0696 PER 250MG) ONE (22:59)
[2019-12-25] MEDS ORDERED: PANTOPRAZOLE 40MG TAB (PROTONIX) ONE (08:45)
[2019-12-25] MEDS ORDERED: CLINDAMYCIN 600 MG/50 ML PREMIX BAG ONE ×4 (08:45→23:59)
[2019-12-25] MEDS ORDERED: methylPREDNISolone 125MG 2ML VIAL ONE ×2 (08:45→16:22)
[2019-12-25] MEDS ORDERED: methylPREDNISolone 125MG 2ML VIAL As Ordered ONE (16:22)
[2019-12-25] MEDS ORDERED: CLINDAMYCIN 600 MG/50 ML PREMIX BAG As Ordered ONE (16:23)
[2019-12-25] MEDS ORDERED: cefTRIAXone SOD 1GM VIAL (J0696 PER 250MG) ONE (22:56)
[2019-12-26] MEDS ORDERED: PANTOPRAZOLE 40MG TAB (PROTONIX) ONE (08:23)
[2019-12-26] MEDS ORDERED: CLINDAMYCIN 600 MG/50 ML PREMIX BAG ONE ×3 (08:23→23:40)
[2019-12-26] MEDS ORDERED: methylPREDNISolone 125MG 2ML VIAL ONE ×2 (08:23→12:45)
[2019-12-26] MEDS ORDERED: flumazeniL 0.5 MG/5 ML VIAL As Ordered ONE (08:40)
[2019-12-26] MEDS ORDERED: MIDAZOLAM INJ 2MG/2ML VIAL (J2250 PER 1MG) As Ordered ONE (08:40)
[2019-12-26] MEDS ORDERED: LIDOCAINE 1% MDV 20ML VIAL As Ordered ONE (08:41)
[2019-12-26] MEDS ORDERED: CLINDAMYCIN 600 MG/50 ML PREMIX BAG As Ordered ONE ×2 (16:47→23:40)
[2019-12-26] MEDS ORDERED: NICOTINE 14 MG/24 HR TRANSDERMAL As Ordered ONE (16:48)
[2019-12-26] MEDS ORDERED: methylPREDNISolone 40MG 1ML VIAL As Ordered ONE (20:27)
[2019-12-26] MEDS ORDERED: methylPREDNISolone 40MG 1ML VIAL ONE (20:27)
[2019-12-26] MEDS ORDERED: cefTRIAXone SOD 1GM VIAL (J0696 PER 250MG) As Ordered ONE (22:44)
[2019-12-26] MEDS ORDERED: HEPARIN SOD (PORCINE) 5000UNITS/ML 1ML VIAL/SYRINGE As Ordered ONE (22:44)
[2019-12-26] MEDS ORDERED: HEPARIN SOD (PORCINE) 5000UNITS/ML 1ML VIAL/SYRINGE ONE (22:44)
[2019-12-26] MEDS ORDERED: cefTRIAXone SOD 1GM VIAL (J0696 PER 250MG) ONE (22:44)
[2019-12-27] MEDS ORDERED: methylPREDNISolone 40MG 1ML VIAL ONE ×2 (08:20→20:07)
[2019-12-27] MEDS ORDERED: PANTOPRAZOLE 40MG TAB (PROTONIX) ONE (08:20)
[2019-12-27] MEDS ORDERED: CLINDAMYCIN 600 MG/50 ML PREMIX BAG As Ordered ONE ×2 (08:23→15:46)
[2019-12-27] MEDS ORDERED: CLINDAMYCIN 600 MG/50 ML PREMIX BAG ONE ×2 (08:23→15:46)
[2019-12-27] MEDS ORDERED: HEPARIN SOD (PORCINE) 5000UNITS/ML 1ML VIAL/SYRINGE ONE ×2 (14:07→23:58)
[2019-12-27] MEDS ORDERED: HEPARIN SOD (PORCINE) 5000UNITS/ML 1ML VIAL/SYRINGE As Ordered ONE ×2 (14:07→23:58)
[2019-12-27] MEDS ORDERED: methylPREDNISolone 40MG 1ML VIAL As Ordered ONE (20:07)
[2019-12-27] MEDS ORDERED: cefTRIAXone SOD 1GM VIAL (J0696 PER 250MG) ONE (23:58)
[2019-12-27] MEDS ORDERED: cefTRIAXone SOD 1GM VIAL (J0696 PER 250MG) As Ordered ONE (23:58)
[2019-12-28] MEDS ORDERED: HEPARIN SOD (PORCINE) 5000UNITS/ML 1ML VIAL/SYRINGE ONE ×3 (05:56→20:09)
[2019-12-28] MEDS ORDERED: HEPARIN SOD (PORCINE) 5000UNITS/ML 1ML VIAL/SYRINGE As Ordered ONE ×3 (05:56→20:09)
[2019-12-28] MEDS ORDERED: NICOTINE 14 MG/24 HR TRANSDERMAL ONE (08:49)
[2019-12-28] MEDS ORDERED: PANTOPRAZOLE 40MG TAB (PROTONIX) ONE (08:49)
[2019-12-28] MEDS ORDERED: PANTOPRAZOLE 40MG TAB (PROTONIX) As Ordered ONE (08:49)
[2019-12-28] MEDS ORDERED: NICOTINE 14 MG/24 HR TRANSDERMAL As Ordered ONE (08:49)
[2019-12-28] MEDS ORDERED: methylPREDNISolone 40MG 1ML VIAL As Ordered ONE (08:49)
[2019-12-28] MEDS ORDERED: methylPREDNISolone 40MG 1ML VIAL ONE (08:49)
[2019-12-28] MEDS ORDERED: methylPREDNISolone 125MG 2ML VIAL As Ordered ONE ×2 (16:54→20:09)
[2019-12-28] MEDS ORDERED: methylPREDNISolone 125MG 2ML VIAL ONE ×2 (16:54→20:09)
[2019-12-29] MEDS ORDERED: cefTRIAXone SOD 1GM VIAL (J0696 PER 250MG) As Ordered ONE (00:01)
[2019-12-29] MEDS ORDERED: cefTRIAXone SOD 1GM VIAL (J0696 PER 250MG) ONE (00:01)
[2019-12-29] MEDS ORDERED: methylPREDNISolone 125MG 2ML VIAL As Ordered ONE ×3 (03:17→15:16)
[2019-12-29] MEDS ORDERED: methylPREDNISolone 125MG 2ML VIAL ONE ×3 (03:17→15:15)
[2019-12-29] MEDS ORDERED: HEPARIN SOD (PORCINE) 5000UNITS/ML 1ML VIAL/SYRINGE ONE ×3 (06:54→20:41)
[2019-12-29] MEDS ORDERED: HEPARIN SOD (PORCINE) 5000UNITS/ML 1ML VIAL/SYRINGE As Ordered ONE ×3 (06:54→20:41)
[2019-12-29] MEDS ORDERED: NICOTINE 14 MG/24 HR TRANSDERMAL ONE (10:50)
[2019-12-29] MEDS ORDERED: NICOTINE 14 MG/24 HR TRANSDERMAL As Ordered ONE (10:50)
[2019-12-29] MEDS ORDERED: PANTOPRAZOLE 40MG TAB (PROTONIX) As Ordered ONE (10:50)
[2019-12-29] MEDS ORDERED: PANTOPRAZOLE 40MG TAB (PROTONIX) ONE (10:50)
[2019-12-29] MEDS ORDERED: BACTRIM 160MG/800MG DS TAB ONE (20:41)
[2019-12-29] MEDS ORDERED: BACTRIM 160MG/800MG DS TAB As Ordered ONE (20:41)
[2019-12-29] MEDS ORDERED: NYSTATIN 500,000 U/5 ML SUSP UDC As Ordered ONE (20:41)
[2019-12-29] MEDS ORDERED: NYSTATIN 500,000 U/5 ML SUSP UDC ONE (20:41)
[2019-12-30] MEDS ORDERED: HEPARIN SOD (PORCINE) 5000UNITS/ML 1ML VIAL/SYRINGE ONE ×3 (05:55→21:59)
[2019-12-30] MEDS ORDERED: HEPARIN SOD (PORCINE) 5000UNITS/ML 1ML VIAL/SYRINGE As Ordered ONE ×3 (05:55→21:59)
[2019-12-30] MEDS ORDERED: NICOTINE 14 MG/24 HR TRANSDERMAL As Ordered ONE (08:20)
[2019-12-30] MEDS ORDERED: predniSONE 20 MG TAB ONE (08:21)
[2019-12-30] MEDS ORDERED: PANTOPRAZOLE 40MG TAB (PROTONIX) As Ordered ONE (08:21)
[2019-12-30] MEDS ORDERED: PANTOPRAZOLE 40MG TAB (PROTONIX) ONE (08:21)
[2019-12-30] MEDS ORDERED: NYSTATIN 500,000 U/5 ML SUSP UDC ONE ×4 (08:21→22:04)
[2019-12-30] MEDS ORDERED: NYSTATIN 500,000 U/5 ML SUSP UDC As Ordered ONE ×4 (08:22→22:04)
[2019-12-30] MEDS ORDERED: predniSONE 20 MG TAB As Ordered ONE (08:22)
[2019-12-31] MEDS ORDERED: HEPARIN SOD (PORCINE) 5000UNITS/ML 1ML VIAL/SYRINGE ONE ×3 (05:54→21:14)
[2019-12-31] MEDS ORDERED: HEPARIN SOD (PORCINE) 5000UNITS/ML 1ML VIAL/SYRINGE As Ordered ONE ×3 (05:54→21:14)
[2019-12-31] MEDS ORDERED: NYSTATIN 500,000 U/5 ML SUSP UDC As Ordered ONE ×4 (08:40→21:15)
[2019-12-31] MEDS ORDERED: NYSTATIN 500,000 U/5 ML SUSP UDC ONE ×4 (08:40→21:14)
[2019-12-31] MEDS ORDERED: PANTOPRAZOLE 40MG TAB (PROTONIX) As Ordered ONE (08:40)
[2019-12-31] MEDS ORDERED: predniSONE 20 MG TAB ONE (08:40)
[2019-12-31] MEDS ORDERED: PANTOPRAZOLE 40MG TAB (PROTONIX) ONE (08:40)
[2019-12-31] MEDS ORDERED: predniSONE 20 MG TAB As Ordered ONE (08:40)
[2020-01-01] MEDS ORDERED: HEPARIN SOD (PORCINE) 5000UNITS/ML 1ML VIAL/SYRINGE ONE ×3 (05:37→21:38)
[2020-01-01] MEDS ORDERED: HEPARIN SOD (PORCINE) 5000UNITS/ML 1ML VIAL/SYRINGE As Ordered ONE ×3 (05:37→21:38)
[2020-01-01] MEDS ORDERED: NICOTINE 14 MG/24 HR TRANSDERMAL ONE (08:18)
[2020-01-01] MEDS ORDERED: NICOTINE 14 MG/24 HR TRANSDERMAL As Ordered ONE (08:18)
[2020-01-01] MEDS ORDERED: predniSONE 20 MG TAB ONE (08:18)
[2020-01-01] MEDS ORDERED: NYSTATIN 500,000 U/5 ML SUSP UDC ONE ×4 (08:18→20:35)
[2020-01-01] MEDS ORDERED: NYSTATIN 500,000 U/5 ML SUSP UDC As Ordered ONE ×4 (08:18→20:35)
[2020-01-01] MEDS ORDERED: PANTOPRAZOLE 40MG TAB (PROTONIX) ONE (08:18)
[2020-01-01] MEDS ORDERED: PANTOPRAZOLE 40MG TAB (PROTONIX) As Ordered ONE (08:18)
[2020-01-01] MEDS ORDERED: predniSONE 20 MG TAB As Ordered ONE (08:19)
[2020-01-01] MEDS ORDERED: BACTRIM 160MG/800MG DS TAB As Ordered ONE (20:35)
[2020-01-01] MEDS ORDERED: BACTRIM 160MG/800MG DS TAB ONE (20:35)
[2020-01-02] MEDS ORDERED: HEPARIN SOD (PORCINE) 5000UNITS/ML 1ML VIAL/SYRINGE As Ordered ONE ×3 (04:59→21:08)
[2020-01-02] MEDS ORDERED: HEPARIN SOD (PORCINE) 5000UNITS/ML 1ML VIAL/SYRINGE ONE ×3 (04:59→21:08)
[2020-01-02] MEDS ORDERED: PANTOPRAZOLE 40MG TAB (PROTONIX) ONE (09:37)
[2020-01-02] MEDS ORDERED: predniSONE 20 MG TAB ONE (09:37)
[2020-01-02] MEDS ORDERED: PANTOPRAZOLE 40MG TAB (PROTONIX) As Ordered ONE (09:37)
[2020-01-02] MEDS ORDERED: NYSTATIN 500,000 U/5 ML SUSP UDC ONE ×4 (09:37→20:10)
[2020-01-02] MEDS ORDERED: NYSTATIN 500,000 U/5 ML SUSP UDC As Ordered ONE ×4 (09:37→20:10)
[2020-01-02] MEDS ORDERED: predniSONE 20 MG TAB As Ordered ONE (09:38)
[2020-01-02] MEDS ORDERED: BACTRIM 160MG/800MG DS TAB As Ordered ONE (20:11)
[2020-01-02] MEDS ORDERED: BACTRIM 160MG/800MG DS TAB ONE (20:11)
[2020-01-03] MEDS ORDERED: HEPARIN SOD (PORCINE) 5000UNITS/ML 1ML VIAL/SYRINGE ONE ×4 (05:35→21:13)
[2020-01-03] MEDS ORDERED: HEPARIN SOD (PORCINE) 5000UNITS/ML 1ML VIAL/SYRINGE As Ordered ONE (05:35)
[2020-01-03] MEDS ORDERED: NYSTATIN 500,000 U/5 ML SUSP UDC As Ordered ONE (09:25)
[2020-01-03] MEDS ORDERED: NYSTATIN 500,000 U/5 ML SUSP UDC ONE ×4 (09:25→21:13)
[2020-01-03] MEDS ORDERED: PANTOPRAZOLE 40MG TAB (PROTONIX) ONE (09:25)
[2020-01-03] MEDS ORDERED: predniSONE 20 MG TAB ONE (09:25)
[2020-01-03] MEDS ORDERED: PANTOPRAZOLE 40MG TAB (PROTONIX) As Ordered ONE (09:25)
[2020-01-03] MEDS ORDERED: predniSONE 20 MG TAB As Ordered ONE (09:28)
[2020-01-03] MEDS ORDERED: ISOVUE-370 76% 100ML VIAL ONE (13:59)
[2020-01-03] MEDS ORDERED: BACTRIM 160MG/800MG DS TAB ONE (21:13)
[2020-01-04] MEDS ORDERED: HEPARIN SOD (PORCINE) 5000UNITS/ML 1ML VIAL/SYRINGE As Ordered ONE ×3 (05:27→21:04)
[2020-01-04] MEDS ORDERED: HEPARIN SOD (PORCINE) 5000UNITS/ML 1ML VIAL/SYRINGE ONE ×3 (05:27→21:04)
[2020-01-04] MEDS ORDERED: PANTOPRAZOLE 40MG TAB (PROTONIX) ONE (09:20)
[2020-01-04] MEDS ORDERED: NYSTATIN 500,000 U/5 ML SUSP UDC ONE ×4 (09:20→21:04)
[2020-01-04] MEDS ORDERED: predniSONE 20 MG TAB ONE (09:20)
[2020-01-04] MEDS ORDERED: PANTOPRAZOLE 40MG TAB (PROTONIX) As Ordered ONE (09:20)
[2020-01-04] MEDS ORDERED: predniSONE 10 MG TAB ONE (09:20)
[2020-01-04] MEDS ORDERED: NYSTATIN 500,000 U/5 ML SUSP UDC As Ordered ONE ×4 (09:21→21:05)
[2020-01-04] MEDS ORDERED: predniSONE 10 MG TAB As Ordered ONE (09:21)
[2020-01-04] MEDS ORDERED: predniSONE 20 MG TAB As Ordered ONE (09:21)
[2020-01-05] MEDS ORDERED: HEPARIN SOD (PORCINE) 5000UNITS/ML 1ML VIAL/SYRINGE ONE (06:54)
[2020-01-05] MEDS ORDERED: HEPARIN SOD (PORCINE) 5000UNITS/ML 1ML VIAL/SYRINGE As Ordered ONE (06:54)
[2020-01-05] MEDS ORDERED: PANTOPRAZOLE 40MG TAB (PROTONIX) ONE (11:03)
[2020-01-05] MEDS ORDERED: NICOTINE 14 MG/24 HR TRANSDERMAL As Ordered ONE (11:03)
[2020-01-05] MEDS ORDERED: predniSONE 10 MG TAB As Ordered ONE (11:03)
[2020-01-05] MEDS ORDERED: predniSONE 10 MG TAB ONE (11:03)
[2020-01-05] MEDS ORDERED: NICOTINE 14 MG/24 HR TRANSDERMAL ONE (11:03)
[2020-01-05] MEDS ORDERED: PANTOPRAZOLE 40MG TAB (PROTONIX) As Ordered ONE (11:04)
[2020-01-11] MEDS ORDERED: PANT40TA29 PO (12:24)
[2020-01-11] MEDS ORDERED: ADV250INH INH (12:24)
[2020-01-11] MEDS ORDERED: PRED10TA2 PO (12:24)
[2020-01-23 11:14] LABS: PROTHROMBIN TIME 14.4 SECONDS (11.8-14.0)
[2020-01-23 15:32] LABS: BASO % 0.3 % (0.0-1.0); EOS % 0.3 % (0.0-3.0); HEMATOCRIT 39.7 % (42.0-52.0); HEMOGLOBIN 12.7 g/dl (13.5-17.5); LYMPH # 0.3 10^3/uL (1.5-5.0); LYMPH % 3.7 % (24.0-44.0); MEAN CORPUSCULAR HEMOGLOBIN 34.2 pg (27.0-33.0); MONO # 0.5 10^3/uL (0.0-0.8); NEUTROPHILS # 6.7 10^3/uL (1.5-8.5); NEUTROPHILS % 87.9 % (36.0-66.0); PLATELET COUNT, AUTOMATED 143 10^3/uL (150-450); RED BLOOD COUNT 3.71 10^6/uL (4.30-6.10); WHITE BLOOD COUNT 7.6 10^3/uL (4.0-10.0)
[2020-01-30] MEDS ORDERED: PRED25TA PO (13:37)
[2020-02-05 11:03] LABS: ALBUMIN 3.3 GM/DL (3.2-5.2); BILIRUBIN,DIRECT 0.1 MG/DL (0.0-0.2); BILIRUBIN,TOTAL 0.6 MG/DL (0.2-1.0); CK-MB VALUE MASS 1.3 NG/ML (<3.6); MB/CK RELATIVE INDEX 2.41 (< OR =4); THYROID STIMULATING HORMONE 0.579 uIU/ML (0.358-3.740); TOTAL PROTEIN 6.2 GM/DL (6.4-8.2); TROPONIN I 0.04 NG/ML (< 0.10)
--- NOTE | 2020-02-08 17:35 | ECGEPIP ---
SINUS RHYTHM SEE SCANNED DOWNTIME REPORT MTDD
--- NOTE | 2020-02-13 08:01 | REP ---
CT-GUIDED LEFT LOWER LUNG BIOPSY: The procedure was performed under the direct supervision of Dr. Ayala. HISTORY: The patient has a history of a left lower lobe lung mass seen on the previous CT scan dated 12/22/19. PROCEDURE: The risks and benefits of the procedure were explained to the patient and informed consent was obtained. The left lower lobe lung mass was localized using CT guidance. The skin was prepped and draped in a sterile fashion. 1% lidocaine was used as a local anesthetic. Using CT guidance, a 19/20 gauge coaxial needle biopsy system was inserted and advanced into the mass. 4 core biopsy samples were obtained and sent to the lab. The patient tolerated the procedure well and there were no immediate complications. After the appropriate amount of monitored convalescence, the patient was discharged from the department. RITU
--- NOTE | 2020-02-13 08:02 | REP ---
PA CHEST X-RAY: SINGLE VIEW HISTORY: R91.8 rule out pneumonia. Report is delayed due to a malware attack on this facility. The patient is status post CT-guided needle biopsy procedure. Pulmonary nodule left lower lobe. There is no evidence of pneumothorax or hydrothorax. The lungs overall are hyperinflated. There is some interstitial fibrosis bilaterally. Coarse linear fibrosis is seen in the perihilar regions on both sides. An Infusaport catheter is noted in place on the right. IMPRESSION: No complication identified. MTDD
--- NOTE | 2020-02-13 08:04 | REP ---
CHEST X-RAY: 3-VIEWS COMPARISON: None. HISTORY: Rule out pneumothorax or effusion. New diagnosis non-small cell lung carcinoma. Status post biopsy. FINDINGS: There is no evidence of pneumothorax or hydrothorax. Diffuse interstitial lung disease is seen. A right-sided Infusaport catheter is seen with its tip in the expected location in the superior vena cava. There is linear fibrosis in the perihilar regions on the right and the left. IMPRESSION: No evidence of pneumothorax or hydrothorax. Diffuse interstitial lung disease. Chronic scarring. Infusaport catheter. MTDD
--- NOTE | 2020-02-13 08:06 | REP ---
VENTILATION PERFUSION RADIONUCLIDE LUNG SCAN: HISTORY: Hypoxia, rule out pulmonary embolus. History of lung carcinoma. COMPARISON: None. TECHNIQUE: 1.0 mCi of technetium-99m MDP aerosol is utilized for the ventilation study and is followed by a 5.3 mCi dose of technetium-99m MAA given intravenously for the perfusion examination. A series of 8 planar images are acquired for each portion of the study. FINDINGS: There is some central bronchial tracer deposition bilaterally, right greater than left on the ventilation study, consistent with some degree of COPD. Patchy uptake is seen on the perfusion exam as well. There are multiple matched perfusion ventilation defects noted bilaterally. No mismatched defect is appreciated. IMPRESSION: Multiple matched VQ defects. Low probability scan for pulmonary embolus. MTDD
[2020-02-13 16:28] LABS: HEMATOCRIT 38.9 % (42.0-52.0); HEMOGLOBIN 12.4 g/dl (13.5-17.5); MEAN CORPUSCULAR HEMOGLOBIN 34.2 pg (27.0-33.0); MEAN CORPUSCULAR HGB CONC 31.9 g/dl (32.0-36.5); MEAN CORPUSCULAR VOLUME 107.2 fl (80.0-96.0); PLATELET COUNT, AUTOMATED 159 10^3/uL (150-450); RED BLOOD COUNT 3.63 10^6/uL (4.30-6.10); WHITE BLOOD COUNT 8.9 10^3/uL (4.0-10.0)
[2020-02-13 16:29] LABS: BASO % 0.1 % (0.0-1.0); LYMPH # 0.2 10^3/uL (1.5-5.0); LYMPH % 2.3 % (24.0-44.0); MONO # 0.2 10^3/uL (0.0-0.8); MONO % 2.3 % (0.0-5.0); NEUTROPHILS # 8.4 10^3/uL (1.5-8.5); NEUTROPHILS % 94.5 % (36.0-66.0)
[2020-02-14 10:39] LABS: HEMATOCRIT 37.3 % (42.0-52.0); HEMOGLOBIN 12.1 g/dl (13.5-17.5); MEAN CORPUSCULAR HEMOGLOBIN 34.1 pg (27.0-33.0); MEAN CORPUSCULAR HGB CONC 32.4 g/dl (32.0-36.5); MEAN CORPUSCULAR VOLUME 105.1 fl (80.0-96.0); PLATELET COUNT, AUTOMATED 142 10^3/uL (150-450); RED BLOOD COUNT 3.55 10^6/uL (4.30-6.10); WHITE BLOOD COUNT 2.4 10^3/uL (4.0-10.0)
[2020-02-24 09:09] LABS: HEMATOCRIT 44.6 % (42.0-52.0); HEMOGLOBIN 14.2 g/dl (13.5-17.5); MEAN CORPUSCULAR HEMOGLOBIN 34.2 pg (27.0-33.0); MEAN CORPUSCULAR HGB CONC 31.8 g/dl (32.0-36.5); MEAN CORPUSCULAR VOLUME 107.5 fl (80.0-96.0); PLATELET COUNT, AUTOMATED 174 10^3/uL (150-450); RED BLOOD COUNT 4.15 10^6/uL (4.30-6.10); WHITE BLOOD COUNT 8.3 10^3/uL (4.0-10.0)
[2020-02-25 01:00] LABS: HEMATOCRIT 40.9 % (42.0-52.0); HEMOGLOBIN 13.1 g/dl (13.5-17.5); MEAN CORPUSCULAR HEMOGLOBIN 35.1 pg (27.0-33.0); MEAN CORPUSCULAR VOLUME 109.7 fl (80.0-96.0); PLATELET COUNT, AUTOMATED 121 10^3/uL (150-450); RED BLOOD COUNT 3.73 10^6/uL (4.30-6.10); WHITE BLOOD COUNT 12.8 10^3/uL (4.0-10.0)
[2020-03-06 09:20] LABS: HEMATOCRIT 38.6 % (42.0-52.0); HEMOGLOBIN 12.6 g/dl (13.5-17.5); MEAN CORPUSCULAR HEMOGLOBIN 34.7 pg (27.0-33.0); MEAN CORPUSCULAR HGB CONC 32.6 g/dl (32.0-36.5); MEAN CORPUSCULAR VOLUME 106.3 fl (80.0-96.0); PLATELET COUNT, AUTOMATED 123 10^3/uL (150-450); RED BLOOD COUNT 3.63 10^6/uL (4.30-6.10); WHITE BLOOD COUNT 9.7 10^3/uL (4.0-10.0)
[2020-03-06 09:28] LABS: HEMATOCRIT 41.2 % (42.0-52.0); HEMOGLOBIN 13.3 g/dl (13.5-17.5); MEAN CORPUSCULAR HEMOGLOBIN 34.2 pg (27.0-33.0); MEAN CORPUSCULAR HGB CONC 32.3 g/dl (32.0-36.5); MEAN CORPUSCULAR VOLUME 105.9 fl (80.0-96.0); PLATELET COUNT, AUTOMATED 143 10^3/uL (150-450); RED BLOOD COUNT 3.89 10^6/uL (4.30-6.10); WHITE BLOOD COUNT 14.5 10^3/uL (4.0-10.0)
[2020-03-17 11:14] LABS: ALBUMIN 2.8 GM/DL (3.2-5.2); ALT/SGPT 12 U/L (12-78); BILIRUBIN,TOTAL 0.3 MG/DL (0.2-1.0); BLOOD UREA NITROGEN 14 MG/DL (7-18); CALCIUM LEVEL 8.3 MG/DL (8.8-10.2); CARBON DIOXIDE LEVEL 25 MEQ/L (21-32); CHLORIDE LEVEL 104 MEQ/L (98-107); CREATININE FOR GFR 0.62 MG/DL (0.70-1.30); GLOMERULAR FILTRATION RATE > 60.0 (>49); GLUCOSE, FASTING 153 MG/DL (70-100); POTASSIUM SERUM 4.9 MEQ/L (3.5-5.1); SODIUM LEVEL 136 MEQ/L (136-145); TOTAL PROTEIN 5.8 GM/DL (6.4-8.2)
[2020-03-19 09:32] LABS: BLOOD UREA NITROGEN 16 MG/DL (7-18); CALCIUM LEVEL 8.3 MG/DL (8.8-10.2); CARBON DIOXIDE LEVEL 27 MEQ/L (21-32); CHLORIDE LEVEL 105 MEQ/L (98-107); CREATININE FOR GFR 0.62 MG/DL (0.70-1.30); GLOMERULAR FILTRATION RATE > 60.0 (>49); GLUCOSE, FASTING 130 MG/DL (70-100); POTASSIUM SERUM 4.6 MEQ/L (3.5-5.1); SODIUM LEVEL 138 MEQ/L (136-145)
[2020-03-20 15:02] LABS: BLOOD UREA NITROGEN 16 MG/DL (7-18); GLUCOSE, FASTING 153 MG/DL (70-100)
[2020-03-20 15:03] LABS: CALCIUM LEVEL 8.5 MG/DL (8.8-10.2); CARBON DIOXIDE LEVEL 33 mmol/L (20-29); CHLORIDE LEVEL 98 MEQ/L (98-107); CREATININE FOR GFR 0.72 MG/DL (0.70-1.30); GLOMERULAR FILTRATION RATE > 60.0 (>49); POTASSIUM SERUM 3.9 MEQ/L (3.5-5.1); SODIUM LEVEL 135 MEQ/L (136-145)
[2020-03-25 19:17] LABS: BLOOD UREA NITROGEN 19 MG/DL (7-18); CALCIUM LEVEL 8.7 MG/DL (8.8-10.2); CARBON DIOXIDE LEVEL 31 MEQ/L (21-32); CHLORIDE LEVEL 100 MEQ/L (98-107); CREATININE FOR GFR 0.67 MG/DL (0.70-1.30); GLOMERULAR FILTRATION RATE > 60.0 (>49); GLUCOSE, FASTING 145 MG/DL (70-100); POTASSIUM SERUM 4.4 MEQ/L (3.5-5.1); SODIUM LEVEL 135 MEQ/L (136-145)
[2020-03-25 23:13] LABS: BLOOD UREA NITROGEN 18 MG/DL (7-18); CALCIUM LEVEL 7.9 MG/DL (8.8-10.2); CARBON DIOXIDE LEVEL 32 MEQ/L (21-32); CHLORIDE LEVEL 102 MEQ/L (98-107); CREATININE FOR GFR 0.73 MG/DL (0.70-1.30); GLOMERULAR FILTRATION RATE > 60.0 (>49); GLUCOSE, FASTING 80 MG/DL (70-100); POTASSIUM SERUM 4.3 MEQ/L (3.5-5.1); SODIUM LEVEL 138 MEQ/L (136-145)
[2020-03-27 07:49] LABS: BLOOD UREA NITROGEN 16 MG/DL (7-18); CALCIUM LEVEL 8.7 MG/DL (8.8-10.2); CARBON DIOXIDE LEVEL 33 MEQ/L (21-32); CHLORIDE LEVEL 102 MEQ/L (98-107); CREATININE FOR GFR 0.71 MG/DL (0.70-1.30); GLOMERULAR FILTRATION RATE > 60.0 (>49); GLUCOSE, FASTING 173 MG/DL (70-100); POTASSIUM SERUM 4.4 MEQ/L (3.5-5.1); SODIUM LEVEL 138 MEQ/L (136-145)
== END 2020-01-05 14:10 | disposition home or self-care (01) | DRG 189 ==
LOC: M ED 15:50 → M MS5PR 20:09 → M ED 12-24 17:30
PROVIDERS: ADMIT Internal Medicine; ATTEND Internal Medicine
PROC: 0BBL3ZX Excision of Left Lung, Percutaneous Approach, Diagnostic (ICD-10-PCS; principal; 2019-12-25)
DX: J96.01 Acute respiratory failure with hypoxia (principal); C78.02 Secondary malignant neoplasm of left lung; M31.30 Wegener's granulomatosis without renal involvement; C21.8 Malignant neoplasm of overlapping sites of rectum, anus and anal canal; Z79.52 Long term (current) use of systemic steroids; F17.210 Nicotine dependence, cigarettes, uncomplicated; Z92.21 Personal history of antineoplastic chemotherapy; Z92.3 Personal history of irradiation; J43.9 Emphysema, unspecified; Z85.51 Personal history of malignant neoplasm of bladder; Z79.899 Other long term (current) drug therapy; K21.9 Gastro-esophageal reflux disease without esophagitis

== ENCOUNTER → 2020-02-07 | Outpatient (REF) | payer MEDICARE, MEDICAID ==
[~2020-02-07] MED LIST changes: +ADV250INH INH; -ISOVUE-370 76% 100ML VIAL As Ordered ONE; +PANT40TA29 PO; +PRED10TA2 PO; +PRED25TA PO
== END ==
LOC: M LAB REF 09:08
PROVIDERS: ATTEND Specialist
DX: C44.02 Squamous cell carcinoma of skin of lip (principal)

== ENCOUNTER 2020-02-09 15:47 | Inpatient (IN) | payer MEDICARE, MEDICAID ==
[~2020-02-09] VITALS: Ht 180.3 cm; Wt 53.3 kg
[2020-02-09] MEDS ORDERED: FOLI1TAB11 PO (16:05)
[2020-02-09 16:26] LABS: ABG BASE EXCESS 0.1 (-2.0-2.0); ABG O2 SATURATION 92.1 % (95.0-99.0); ABG PARTIAL PRESSURE CO2 31.9 mmHg (35.0-45.0); ABG PARTIAL PRESSURE O2 63.6 mmHg (75.0-100.0); ABG STANDARD HCO3 24.5 MEQ/L (22.0-26.0); ABG pH (ARTERIAL) 7.476 UNITS (7.350-7.450)
[2020-02-09] MEDS ORDERED: methylPREDNISolone 125MG 2ML VIAL IV ONE (16:30)
[2020-02-09] MEDS ORDERED: COMBIVENT RESPIMAT 100-20MCG INHALER 4GM INH ONE (16:30)
[2020-02-09 16:44] LABS: BASO % 0.3 % (0.0-1.0); EOS % 0.1 % (0.0-3.0); HEMATOCRIT 36.4 % (42.0-52.0); HEMOGLOBIN 11.7 g/dl (13.5-17.5); LYMPH # 0.4 10^3/uL (1.5-5.0); LYMPH % 4.4 % (24.0-44.0); MEAN CORPUSCULAR HGB CONC 32.1 g/dl (32.0-36.5); MEAN CORPUSCULAR VOLUME 102.5 fl (80.0-96.0); MONO # 0.6 10^3/uL (0.0-0.8); MONO % 7.3 % (0.0-5.0); NEUTROPHILS # 6.9 10^3/uL (1.5-8.5); PLATELET COUNT, AUTOMATED 138 10^3/uL (150-450); RED BLOOD COUNT 3.55 10^6/uL (4.30-6.10); WHITE BLOOD COUNT 7.9 10^3/uL (4.0-10.0)
[2020-02-09 17:02] LABS: INR 1.02; PROTHROMBIN TIME 13.6 SECONDS (12.5-14.3)
[2020-02-09 17:03] LABS: PARTIAL THROMBOPLASTIN TIME 29.8 SECONDS (24.2-38.5)
[2020-02-09 17:10] LABS: ALBUMIN 2.6 GM/DL (3.2-5.2); ALT/SGPT 13 U/L (12-78); BILIRUBIN,DIRECT 0.2 MG/DL (0.0-0.2); BILIRUBIN,TOTAL 0.7 MG/DL (0.2-1.0); BLOOD UREA NITROGEN 14 MG/DL (7-18); CALCIUM LEVEL 8.3 MG/DL (8.8-10.2); CARBON DIOXIDE LEVEL 28 MEQ/L (21-32); CHLORIDE LEVEL 104 MEQ/L (98-107); CK-MB VALUE MASS 1.3 NG/ML (<3.6); CPK CREATINE PHOSPHOKINASE 32 U/L (39-308); CREATININE FOR GFR 0.74 MG/DL (0.70-1.30); FREE T4 1.18 NG/DL (0.76-1.46); GLOMERULAR FILTRATION RATE > 60.0 (>49); GLUCOSE, FASTING 112 MG/DL (70-100); LIPASE 50 U/L (73-393); MB/CK RELATIVE INDEX 4.06 (< OR =4); NT-PRO BNP 1206 PG/ML (<125); POTASSIUM SERUM 4.6 MEQ/L (3.5-5.1); SODIUM LEVEL 139 MEQ/L (136-145); THYROID STIMULATING HORMONE 0.405 uIU/ML (0.358-3.740); TOTAL PROTEIN 5.9 GM/DL (6.4-8.2); TROPONIN I < 0.02 NG/ML (< 0.10)
--- NOTE | 2020-02-09 17:20 | REPVR ---
PROCEDURE INFORMATION: Exam: XR Chest, 1 View Exam date and time: 02/09/2020 5:13 PM Age: 64 years old Clinical indication: Shortness of breath; Additional info: SOB TECHNIQUE: Imaging protocol: XR of the chest Views: 1 view. COMPARISON: CR Chest, 2 view PA, Lat 12/28/2019 9:35 AM FINDINGS: Lungs: Well inflated lungs consistent with COPD. Bilateral interstitial infiltrates not substantially changed in comparison to the prior study. Volume loss in the right hemithorax. Pleural space: Blunted left costophrenic angle may represent a small pleural effusion. Heart/Mediastinum: MediPort catheter tip in the right atrium. Bones/joints: Unremarkable. IMPRESSION: 1. Bilateral interstitial infiltrates not substantially changed in comparison to the prior study. 2. Blunted left costophrenic angle may represent a small pleural effusion. Electronically signed by: Matheus Alamo On 02/09/2020 17:19:59 PM
[2020-02-09] MEDS ORDERED: ISOVUE-370 76% 100ML VIAL As Ordered ONE (17:43)
[2020-02-09] MEDS ORDERED: FUROSEMIDE 40MG/4ML VIAL (J1940) IV ONE (17:45)
[2020-02-09] MEDS ORDERED: IPRATROPIUM 0.5MG/ALBUTEROL 2.5MG INH SOL UD 3ML (DUONEB) NEB ONE (18:00)
--- NOTE | 2020-02-09 18:19 | REPVR ---
PROCEDURE INFORMATION: Exam: CT Angiography Chest With Contrast Exam date and time: 02/09/2020 5:40 PM Age: 64 years old Clinical indication: Shortness of breath; Additional info: SOB, hypoxia TECHNIQUE: Imaging protocol: Computed tomographic angiography of the chest with intravenous contrast. 3D rendering (Not supervised by radiologist): MIP and/or 3D reconstructed images were created by the technologist. Radiation optimization: All CT scans at this facility use at least one of these dose optimization techniques: automated exposure control; mA and/or kV adjustment per patient size (includes targeted exams where dose is matched to clinical indication); or iterative reconstruction. Contrast material: ISOVUE 370; Contrast volume: 75 ml; Contrast route: INTRAVENOUS (IV); COMPARISON: CT Chest without contrast 12/14/2019 8:36 AM FINDINGS: Pulmonary arteries: Normal. No pulmonary emboli. Aorta: There is no aortic dissection or aneurysm. Lungs: Extensive bilateral paraseptal and centrilobular emphysema. Nodule in the right upper lobe has increased in size now measuring 10 mm, findings worrisome for neoplasm. Multiple pulmonary parenchymal nodules, lobular, cavitary, and spiculated, demonstrated measuring up to 3.7 cm in the left lower lobe, findings consistent with metastatic disease. The nodules have increased in size in comparison to the prior CT. Well inflated lungs with flattened diaphragmatic contours and increased retrosternal airspace consistent with COPD. Calcified granuloma right lung. Pleural space: Unremarkable. No pneumothorax. No pleural effusion. Heart: Unremarkable. No cardiomegaly. No pericardial effusion. Lymph nodes: Unremarkable. No enlarged lymph nodes. Bones/joints: The spine demonstrates moderate degenerative changes. Soft tissues: Unremarkable. IMPRESSION: 1. Extensive bilateral paraseptal and centrilobular emphysema. 2. Nodule in the right upper lobe has increased in size now measuring 10 mm, findings worrisome for neoplasm. 3. Multiple pulmonary parenchymal nodules, lobular, cavitary, and spiculated, demonstrated measuring up to 3.7 cm in the left lower lobe. The nodules have increased in size in comparison to the prior CT consistent with progressive metastatic disease. 4. There is no aortic dissection or aneurysm. 5. COPD. Electronically signed by: Matheus Alamo On 02/09/2020 18:18:36 PM
[2020-02-09] MEDS ORDERED: ACETAMINOPHEN TAB 650MG DOSE (2X325MG) PO PRN (20:00)
[2020-02-09] MEDS ORDERED: LevoFLOXacin IV 750 MG in IV 1 EA IV SCH (20:00)
[2020-02-09] MEDS ORDERED: LEVALBUTEROL 1.25 MG/0.5 ML CONCENTRATE NEB NEB PRN (20:00)
--- NOTE | 2020-02-09 22:20 | HPEPDOC ---
General Date of Admission 02/09/2020 Date of Service: Feb 09, 2020 Attending Physician: JUAN ANTONIO ZAVALETA MD Chief Complaint The patient is a 64-year-old male admitted with a reason for visit of SOB. 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 He was otherwise hemodynamically stable, reporting recent chills and EMS fever to 100.7 with recently worsening WASHBURN and tachypnea. At baseline, he lives alone with family within a few block and emphasized being a DNR/DNI with no intention of involving hospice at this time with the goal of medical optimization to return home at his baseline hypoxemia. Workup was notable for WBC 7.9, hgb 11.7, platelets 138, Na 139, K 4,6, Cr 0.74, LFTs wnl, lactate wnl, respiratory panel negative including for covid 19, while EKG was non ischemic and in NSR, troponin was negative and proBNP was elevated to 1206, CXR showed bilateral interstitial infiltrates and a blunted left costophrenic angle and follow up CTA showed extensive spiculated pulmonary nodules that have grown in size and number, as well as extensive emphysema with some diffusely scattered GGOs. While in the ED, he was noted to have bilateral crackles and he was given lasix 40 IV x 1, combi vent, duoneb x 1 and solumedrol 125mg IV x 1 and is now being admitted for acute on chronic hypoxemic respiratory failure in the setting of progression of lung involvement of the poorly differentiated cancer and possible PNA given the recent fever and worsening hypoxemia history. 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 Posadas) recommending no treatment at this time, patient declined hospice -Chart history of RA and rectal CA? Surgical History cystectomy with urostomy recent chin lesion biospy lung nodule biopsy anal lesion biopsy EGD colonoscopy with polyp removal Prostatectomy Family History Significant Family History: No pertinent family hx Social History * Smoker: Denies Alcohol: Denies Drugs: denies Recent Travel/Sick Contacts: Denies: Recent travel, Recent sick contacts Psychosocial History: No pertinent psych hx Lives alone, has family close by. A-FIB/CHADSVASC A-FIB History Current/History of A-Fib/PAF?: No Current PO Anticoag Therapy: No Age/Risk Factor Scoring CHADSVASC: CHADSVASC Response (Comments) Value Age Risk Factor Age < 65 years old 0 Gender Risk Factor Male 0 Hx of CHF No 0 Hx of HTN Yes 1 Hx of Stroke/TIA/or VTE No 0 Hx of Diabetes No 0 Hx of Vascular Disease No 0 Total 1 Treatment Treatment ordered: NONE Reason Anticoagulant not given: Not indicated/[id number] Review of Systems Constitutional: Reports: Chills, Fever, Weight Loss (chronic weight loss with active malignancies) Eyes: Denies: Pain, Vision change ENT: Denies: Head Aches, Ear Pain, Dysphagia Skin: Reports: Lesions (expanding chin lesion recently biopsies 48h ago) Pulmonary: Reports: Dyspnea, Cough (productive of yellow sputum); Denies: Pleuritic Chest Pain Cardiovascular: Denies: Chest Pain, Palpitations, Orthopnea, Paroxysmal Noc. Dyspnea, Edema, Lt Headedness Gastrointestinal: Denies: Nausea, Vomiting, Abdominal Pain, Diarrhea, Constipation, Melena, Hematochezia Genitourinary: Reports: Other Symptoms (has chronic urostomy); Denies: Dysuria, Frequency, Incontinence, Retention Hematologic: Denies: Bruising, Bleeding Excessively Endocrine: Denies: Polydipsia, Polyphagia, Polyuria, Heat Intolerance, Cold Intolerance, Other Endocrine Sx Musculoskeletal: Denies: Neck Pain, Back Pain, Joint Pain, Muscle Pain, Spasms Neurological: Reports: Weakness (chronic); Denies: Numbness, Incoordination, Change in speech, Confusion, Seizures Psych: Reports: Mood Normal; Denies: Depression, Memory Issues Physical Examination General Exam: Positive: Other (thin, cachectic, chronically ill appearing) Eye Exam: Positive: PERRLA, Conjunctiva & lids normal, EOMI; Negative: Sclera icteric ENT Exam: Positive: Atraumatic, Pharynx Normal; Negative: Mucous membr. moist/pink (dry MM) Neck Exam: Positive: Supple; Negative: JVD, thyromegaly Chest Exam: Positive: Rales (bilateral), Diminished; Negative: Rhonchi, Wheezing Heart Exam: Positive: Rate Normal, Regular Rhythm, Normal S1, Normal S2; Negative: Murmurs, Rubs Telemetry: Positive: No significant arrhythmia Abdomen Exam: Positive: Normal bowel sounds, Soft; Negative: Tenderness, Hepatospenomegaly Extremity Exam: Positive: Clubbing, Normal pulses; Negative: Cyanosis, Edema Skin Exam: Positive: Lesion (chin lesion, large, pustular like appearing of budding lobulated lesion with erythematous base) Neuro Exam: Positive: Normal Speech, Strength at 5/5 X4 ext, Sensation Intact, Cranial Nerves 3-12 NL Psych Exam: Positive: Mental status NL, Mood NL, Oriented x 3 Vital Signs Vital Signs Date Time Temp Pulse Resp B/P (MAP) Pulse Ox O2 Delivery O2 Flow Rate FiO2 02/09/20 18:47 103 97 02/09/20 18:30 97/65 (76) 02/09/20 18:30 32 High Flow Cannula 10.0 02/09/20 16:18 95.8 Laboratory Data Labs 24H Laboratory Tests 2 02/09/20 15:50: Immature Granulocyte % (Auto) 0.9, Neutrophils (%) (Auto) 87.0H, Lymphocytes (%) (Auto) 4.4L, Monocytes (%) (Auto) 7.3H, Eosinophils (%) (Auto) 0.1, Basophils (%) (Auto) 0.3, Neutrophils # (Auto) 6.9, Lymphocytes # (Auto) 0.4L, Monocytes # (Auto) 0.6, Eosinophils # (Auto) 0.0, Basophils # (Auto) 0.0, Nucleated Red Blood Cells % (auto) 0.0, Prothrombin Time 13.6, Prothromb Time International Ratio 1.02, Activated Partial Thromboplast Time 29.8, Anion Gap 7L, Glomerular Filtration Rate > 60.0, Calcium Level 8.3L, Total Bilirubin 0.7, Direct Bilirubin 0.2, Aspartate Amino Transf (AST/SGOT) 12, Alanine Aminotransferase (ALT/SGPT) 13, Alkaline Phosphatase 89, Total Creatine Kinase 32L, Creatine Ki nase MB 1.3, Creatine Kinase MB Relative Index 4.06H, Troponin I < 0.02, AE-Hav-Z-Type Natriuretic Peptide 1206H, Total Protein 5.9L, Albumin 2.6L, Albumin/Globulin Ratio 0.8, Lipase 50L, Thyroid Stimulating Hormone (TSH) 0.405, Free Thyroxine 1.18 02/09/20 16:20: Blood Gas Bicarbonate Standard 24.5, Arterial Blood pH 7.476H, Arterial Blood Partial Pressure CO2 31.9L, Arterial Blood Partial Pressure O2 63.6L, Arterial Blood Total CO2 24.0, Arterial Blood HCO3 23.0, Arterial Blood Base Excess 0.1, Arterial Blood Oxygen Saturation 92.1L 02/09/20 16:21: Lactic Acid Level 1.6 CBC/BMP Laboratory Tests 02/09/20 15:50 Microbiology Microbiology 02/09/20 Blood Culture, Received Pending 02/09/20 Respiratory Virus Panel (PCR) (BERTHA) - Final, Complete 02/09/20 Blood Culture, Received Pending Assessment/Plan 64 yo M with a history of 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 Acute on chronic hypoxemic respiratory failure: Likely 2/2 progression of lung involvement of the poorly differentiated cancer of unknown primary and possible PNA given the recent fever and worsening hypoxemia. -supplemental O2 to goal >88% -s/p lasix 40 IV x 1 in the ED, will diurese PRN as BP allows -solumedrol 80Q8H -duonebs Q6H -xopenex neb q4hP -empiric levaquin -SCx and BCx -urine strep and legionella -respiratory panel negative, with negative covid-19 testing -aspiration precautions -incentive spirometry -no PE on CTA Progressive poorly differentiated NSC carcinoma in lung of unclear primary, with history of poorly differentiated SCC of anus s/p chemo/XRT in 07/2019, a history of bladder CA in 2007 s/p bladder and prostate resection with urostomy. -Recently saw Dr. Posadas in clinic, no recommendation for treatment at this time, discussed hospice and patient declined. -I discussed GOC with him tonight and he is DNR/DNI but declines hospice consult at this time with GOC to improve hypoxemia by treating possible reversible causes with anticipated plan to be discharged home thereafter Possible CAP: -empiric levaquin as above -SCX, BCx, urine strep and legionella -procalcitonin Presumed COPD exacerbation: -will continue solumedrol 80Q8H -scheduled duonebs, with PRN xopenex Chin lesion c/f cutaneous mets: -s/p recent biopsy, results pending, stable at this time, no drainage GERD: -continue home protonix DVT ppx: lovenox Dispo: PCU with high O2 requirements. PT/OT. PFS consulted, will likely need home services Plan / VTE VTE Prophylaxis Ordered?: Yes JUAN ANTONIO ZAVALETA MD Feb 09, 2020 22:16
[2020-02-09] MEDS: IPRATROPIUM 0.5MG/ALBUTEROL 2.5MG INH SOL UD 3ML (DUONEB) INH SCH (23:42)
[2020-02-09] MEDS: ADVAIR HFA 115/21MCG INHALER INH SCH (23:43)
[2020-02-10] VITALS (26 sets, daily range): BP systolic 94–109; BP diastolic 64–77; O2SAT 73–97
[2020-02-10] MEDS: IPRATROPIUM 0.5MG/ALBUTEROL 2.5MG INH SOL UD 3ML (DUONEB) INH SCH ×7 (00:50→23:52)
[2020-02-10] MEDS: methylPREDNISolone 125MG 2ML VIAL IV SCH ×3 (03:52→18:46)
[2020-02-10 06:20] LABS: HEMATOCRIT 34.9 % (42.0-52.0); HEMOGLOBIN 11.2 g/dl (13.5-17.5); MEAN CORPUSCULAR HGB CONC 32.1 g/dl (32.0-36.5); MEAN CORPUSCULAR VOLUME 102.9 fl (80.0-96.0); PLATELET COUNT, AUTOMATED 147 10^3/uL (150-450); RED BLOOD COUNT 3.39 10^6/uL (4.30-6.10); WHITE BLOOD COUNT 4.8 10^3/uL (4.0-10.0)
[2020-02-10 06:47] LABS: BLOOD UREA NITROGEN 18 MG/DL (7-18); CALCIUM LEVEL 8.3 MG/DL (8.8-10.2); CARBON DIOXIDE LEVEL 27 MEQ/L (21-32); CHLORIDE LEVEL 101 MEQ/L (98-107); CREATININE FOR GFR 0.71 MG/DL (0.70-1.30); GLOMERULAR FILTRATION RATE > 60.0 (>49); GLUCOSE, FASTING 130 MG/DL (70-100); MAGNESIUM LEVEL 2.1 MG/DL (1.8-2.4); POTASSIUM SERUM 4.3 MEQ/L (3.5-5.1); SODIUM LEVEL 134 MEQ/L (136-145)
[2020-02-10] MEDS: ADVAIR HFA 115/21MCG INHALER INH SCH ×2 (07:14→20:07)
[2020-02-10] MEDS: PANTOPRAZOLE 40MG TAB (PROTONIX) PO SCH (08:02)
[2020-02-10] MEDS: FOLIC ACID 1 MG TAB PO SCH (08:02)
[2020-02-10] MEDS: ENOXAPARIN 40MG/0.4ML SYRINGE (J1650 PER 10MG) SC SCH (08:02)
[2020-02-10] MEDS ORDERED: NS 500 ML IV ONE (08:30)
[2020-02-10] MEDS: cefTRIAXone SOD 2 GM in D5W MINI-BAG PLUS 50 ML IV SCH (09:16)
--- NOTE | 2020-02-10 12:06 | ECGEPIP ---
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
[2020-02-10] MEDS ORDERED: SLF 3 ML SYR IV PRN (16:30)
--- NOTE | 2020-02-10 21:11 | REPVR ---
PROCEDURE INFORMATION: Exam: XR Chest, 1 View Exam date and time: 02/10/2020 8:52 PM Age: 64 years old Clinical indication: Shortness of breath; Additional info: SOB TECHNIQUE: Imaging protocol: XR of the chest Views: 1 view. COMPARISON: CR Chest, 1 view 02/09/2020 4:56 PM FINDINGS: Tubes, catheters and devices: Right-sided medication port in unchanged position. Lungs: Redemonstration of diffuse scattered bilateral interstitial airspace opacities. Emphysematous changes of the lungs. Pleural space: Unchanged small left pleural effusion. Heart/Mediastinum: Cardiac and mediastinal silhouettes are unremarkable. Bones/joints: No acute osseus lesion or fracture. IMPRESSION: 1. Redemonstration of diffuse scattered bilateral interstitial airspace opacities, which could reflect multifocal pneumonia or sequela of metastatic disease. Correlate with CTA chest performed on same date. 2. Unchanged small left pleural effusion. Electronically signed by: Jasen Hamilton On 02/10/2020 21:11:17 PM
[2020-02-10 21:25] LABS: ABG BASE EXCESS -3.7 (-2.0-2.0); ABG HCO3 19.2 MEQ/L (22.0-26.0); ABG O2 SATURATION 96.7 % (95.0-99.0); ABG PARTIAL PRESSURE CO2 28.1 mmHg (35.0-45.0); ABG STANDARD HCO3 21.4 MEQ/L (22.0-26.0); ABG pH (ARTERIAL) 7.452 UNITS (7.350-7.450)
[2020-02-10] MEDS: SLF 3 ML SYR IV SCH (22:32)
[2020-02-11] VITALS (18 sets, daily range): BP systolic 96–125; BP diastolic 65–79; O2SAT 88–97
[2020-02-11] MEDS: methylPREDNISolone 125MG 2ML VIAL IV SCH ×3 (03:29→18:40)
[2020-02-11] MEDS: IPRATROPIUM 0.5MG/ALBUTEROL 2.5MG INH SOL UD 3ML (DUONEB) INH SCH ×5 (03:50→19:48)
[2020-02-11] MEDS: SLF 3 ML SYR IV SCH ×3 (06:00→21:55)
[2020-02-11 06:16] LABS: ABG BASE EXCESS -1.2 (-2.0-2.0); ABG HCO3 22.1 MEQ/L (22.0-26.0); ABG O2 SATURATION 94.8 % (95.0-99.0); ABG PARTIAL PRESSURE CO2 31.9 mmHg (35.0-45.0); ABG PARTIAL PRESSURE O2 78.9 mmHg (75.0-100.0); ABG STANDARD HCO3 23.5 MEQ/L (22.0-26.0); ABG TOTAL CO2 23.1 MEQ/L (23.0-31.0); ABG pH (ARTERIAL) 7.459 UNITS (7.350-7.450)
[2020-02-11 06:25] LABS: HEMATOCRIT 30.7 % (42.0-52.0); HEMOGLOBIN 10.1 g/dl (13.5-17.5); MEAN CORPUSCULAR HEMOGLOBIN 33.4 pg (27.0-33.0); MEAN CORPUSCULAR HGB CONC 32.9 g/dl (32.0-36.5); MEAN CORPUSCULAR VOLUME 101.7 fl (80.0-96.0); PLATELET COUNT, AUTOMATED 129 10^3/uL (150-450); RED BLOOD COUNT 3.02 10^6/uL (4.30-6.10); WHITE BLOOD COUNT 9.2 10^3/uL (4.0-10.0)
[2020-02-11 06:42] LABS: BLOOD UREA NITROGEN 22 MG/DL (7-18); CARBON DIOXIDE LEVEL 27 MEQ/L (21-32); CHLORIDE LEVEL 102 MEQ/L (98-107); CREATININE FOR GFR 0.68 MG/DL (0.70-1.30); GLOMERULAR FILTRATION RATE > 60.0 (>49); GLUCOSE, FASTING 147 MG/DL (70-100); POTASSIUM SERUM 4.3 MEQ/L (3.5-5.1); SODIUM LEVEL 134 MEQ/L (136-145)
[2020-02-11] MEDS: ADVAIR HFA 115/21MCG INHALER INH SCH ×2 (07:46→19:48)
[2020-02-11] MEDS: PANTOPRAZOLE 40MG TAB (PROTONIX) PO SCH (08:23)
[2020-02-11] MEDS: cefTRIAXone SOD 2 GM in D5W MINI-BAG PLUS 50 ML IV SCH (08:23)
[2020-02-11] MEDS: FOLIC ACID 1 MG TAB PO SCH (08:23)
[2020-02-11] MEDS: ENOXAPARIN 40MG/0.4ML SYRINGE (J1650 PER 10MG) SC SCH (08:24)
--- NOTE | 2020-02-11 15:30 | CR.PDOC ---
General Date of Consultation: Feb 11, 2020 Referring Provider: JEAN-PIERRE FLOWERS MD Primary Care Physician: EDOUARD HIRSCH DO Attending Physician: JUAN ANTONIO ZAVALETA MD Consultation REASON FOR CONSULTATION/CHIEF COMPLAINT: Metastatic anal squamous cell carcinoma HISTORY OF PRESENT ILLNESS: Mr. Chris Pearson is a 64-year-old man who completed concurrent chemotherapy RT for anal squamous cell carcinoma in July of this year and was found to have metastatic lung lesions November of this year with biopsy showing metastatic poorly differentiated non-small cell carcinoma. Because of poor performance status, systemic treatment has not been started. He has been developing cutaneous lesions on the thigh, chin, upper back, and scalp with biopsy of chin lesion 02/08/2020 showing invasive squamous cell carcinoma. He is currently admitted for increasing shortness of breath. His sister who was at bedside today reports that he can hardly do anything for himself at home. CT chest angiography 02/09/2020 showed pulmonary nodules increased in size, consistent with progressive metastatic disease. ALLERGIES: Please see below. HOME MEDICATIONS: Please see below. Past Medical History: Marnie's granulomatosis. Benign right lung tumor resected. Bladder carcinoma s/p total cystectomy with ileoconduit. GERD. Past Surgical History: Cystectomy, prostatectomy with urostomy formation 2007 Social History: Former smoker, having quit smoking in 12/11/2019. . No children. REVIEW OF SYSTEMS: General: Reports: Normal Appetite, Fatigue; Denies: Chills, Night Sweats, Malaise Constitutional: Reports: Weight Loss, Weakness, Fatigue, Lethargy; Denies: Chills, Fever, Malaise, Night Sweats. Eyes: Denies: Pain, Vision change, Conjunctivae inflammation, Eyelid in flammation, Redness HEENT: Denies: Head Aches, Ear Pain, Dysphagia, Sinus Congestion, Post Nasal Dr ip, Sore Throat, Epistaxis Skin: Reports: Lesions (lesions on his chin, right upper back, and scalp); Denies: Rash, Jaundice, Bruising Pulmonary: Reports: Dyspnea, Cough; Denies: Pleuritic Chest Pain Cardiovascular: Denies: Chest Pain, Palpitations, Orthopnea, Paroxysmal Noc. Dyspnea, Edema, Lt Headedness Gastrointestinal: Denies: Nausea, Vomiting, Abdominal Pain, Melena, Hematochezia. Reports: Constipation, Diarrhea (once or twice a week.). Genitourinary: Denies: Dysuria, Frequency, Incontinence, Hematuria, Retention Hematologic: Denies: Bruising, Bleeding Excessively, Petecchia, Purpura, Enlarged Lymph Nodes Endocrine: Denies: Polydipsia, Polyphagia, Polyuria, Heat Intolerance, Cold Intolerance Musculoskeletal: Denies: Neck pain, Shoulder pain, Arm pain, Back pain, Hand pain, Leg pain, Foot pain, Joint pain, Muscle pain, Spasms, Gout, Joint sweling, Muscle stiffness, Midthoracic pain Neurological: Reports: Weakness; Denies: Numbness, Incoordination, Change in Speech, Confusion, Seizures Psych: Reports: Mood Normal; Denies: Anxiety, Depression, Memory Issues, Thoughts of Self Harm, Anger, Thoughts of harming Other PHYSICAL EXAMINATION: VITAL SIGNS: Please see below. GENERAL APPEARANCE: Lying in bed, dyspneic at rest, chronically ill-looking. HEENT: Pinkish conjunctivae, nonicteric sclerae. Large cutaneous lesion on his chin. Also has a cutaneous lesion on his scalp and upper back. RESPIRATORY: Fair air entry. Decreased breath sounds on left upper lung. No rhonchi, no wheezing. CARDIOVASCULAR: S1, S2, slightly tachycardic. ABDOMEN: Soft, positive bowel sounds. Colostomy bag on the right. EXTREMITIES: Inguinal lymph node palpable in the left groin. Cutaneous lesion on left upper thigh. No edema. NEUROLOGICAL: Alert. Moves extremities spontaneously. PSYCHIATRIC: No anxiety. LABORATORY DATA: Please see below. ASSESSMENT/PLAN: Metastatic anal squamous cell carcinoma with lung and cutaneous metastases. ECOG PS of at least 3. Advised supportive care only. Not a candidate for systemic treatment such as chemotherapy because of poor performance status. Also not a candidate for immunotherapy as PDL 1 testing showed no expression. Referral to hospice service discussed with the patient and with the patient's sister. Mr. Pearson has decided to go on hospice. Dr. Fiore, hospitalist, was informed of this. Thank you for asking us to see Mr. Chris Pearson. Vital Signs/I&O Vital Signs Date Time Temp Pulse Resp B/P (MAP) Pulse Ox O2 Delivery O2 Flow Rate FiO2 02/11/20 12:00 30.0 85 02/11/20 11:45 98.2 104 20 125/79 (94) 97 HVNI-Vapotherm I&O- Last 24 Hours up to 6 AM 02/11/20 06:00 Intake Total 1200 ml Output Total 1050 ml Balance 150 ml Laboratory Data Labs 24H Laboratory Tests 2 02/10/20 21:19: Blood Gas Bicarbonate Standard 21.4L, Arterial Blood pH 7.452H, Arterial Blood Partial Pressure CO2 28.1L, Arterial Blood Partial Pressure O2 94.0, Arterial Blood Total CO2 20.0L, Arterial Blood HCO3 19.2L, Arterial Blood Base Excess - 3.7L, Arterial Blood Oxygen Saturation 96.7 02/11/20 05:43: Nucleated Red Blood Cells % (auto) 0.0, Anion Gap 5L, Glomerular Filtration Rate > 60.0, Calcium Level 8.0L 02/11/20 06:06: Blood Gas Bicarbonate Standard 23.5, Arterial Blood pH 7.459H, Arterial Blood Partial Pressure CO2 31.9L, Arterial Blood Partial Pressure O2 78.9, Arterial Blood Total CO2 23.1, Arterial Blood HCO3 22.1, Arterial Blood Base Excess -1.2, Arterial Blood Oxygen Saturation 94.8L CBC/BMP Laboratory Tests 02/11/20 05:43 Microbiology Microbiology 02/10/20 Urine Culture, Received Pending 02/10/20 Gram Stain - Final, Complete 02/10/20 Sputum Culture - Final, Complete 02/09/20 Blood Culture - Preliminary, Resulted No growth after 24 hours . All specim... 02/09/20 Respiratory Virus Panel (PCR) (BERTHA) - Final, Complete 02/09/20 Blood Culture - Preliminary, Resulted No growth after 24 hours . All specim... Allergies Coded Allergies: No Known Allergies (Unverified , 02/15/13) Home Medications Scheduled Folic Acid (Folic Acid) 1 Mg Tablet, 1 MG PO DAILY, (Reported) Pantoprazole Sodium (Pantoprazole Sodium) 40 Mg Tablet.dr, 40 MG PO DAILY, (Reported) Prednisone (Prednisone) 2.5 Mg Tablet, 2.5 MG PO DAILY, (Reported) Salmeterol/Fluticasone (Advair 250-50 Diskus) 1 Each Blst.w.dev, 1 INH BID, (Reported) Sulfamethoxazole/Trimethoprim (Bactrim Ds Tablet) 1 Tab Tab, 1 TAB PO 3XW, (Reported) WEDNESDAY, WEDNESDAY, WEDNESDAY ARGENTINA PEÑALOZA MD Feb 11, 2020 15:30
[2020-02-12] VITALS (23 sets, daily range): BP systolic 112–122; BP diastolic 76–79; O2SAT 85–98
[2020-02-12] MEDS: IPRATROPIUM 0.5MG/ALBUTEROL 2.5MG INH SOL UD 3ML (DUONEB) INH SCH ×7 (00:18→20:00)
[2020-02-12] MEDS: methylPREDNISolone 125MG 2ML VIAL IV SCH ×2 (03:48→10:27)
[2020-02-12 04:39] LABS: HEMATOCRIT 33.2 % (42.0-52.0); HEMOGLOBIN 10.7 g/dl (13.5-17.5); MEAN CORPUSCULAR HGB CONC 32.2 g/dl (32.0-36.5); MEAN CORPUSCULAR VOLUME 102.5 fl (80.0-96.0); PLATELET COUNT, AUTOMATED 142 10^3/uL (150-450); RED BLOOD COUNT 3.24 10^6/uL (4.30-6.10)
[2020-02-12 04:55] LABS: BLOOD UREA NITROGEN 18 MG/DL (7-18); CARBON DIOXIDE LEVEL 27 MEQ/L (21-32); CHLORIDE LEVEL 104 MEQ/L (98-107); CREATININE FOR GFR 0.69 MG/DL (0.70-1.30); GLOMERULAR FILTRATION RATE > 60.0 (>49); GLUCOSE, FASTING 183 MG/DL (70-100); POTASSIUM SERUM 4.3 MEQ/L (3.5-5.1); SODIUM LEVEL 138 MEQ/L (136-145)
[2020-02-12] MEDS: SLF 3 ML SYR IV SCH ×3 (05:28→22:22)
[2020-02-12] MEDS: ADVAIR HFA 115/21MCG INHALER INH SCH ×2 (07:47→20:15)
[2020-02-12] MEDS: ENOXAPARIN 40MG/0.4ML SYRINGE (J1650 PER 10MG) SC SCH (09:23)
[2020-02-12] MEDS: cefTRIAXone SOD 2 GM in D5W MINI-BAG PLUS 50 ML IV SCH (09:23)
[2020-02-12] MEDS: PANTOPRAZOLE 40MG TAB (PROTONIX) PO SCH (09:23)
[2020-02-12] MEDS: FOLIC ACID 1 MG TAB PO SCH (09:23)
[2020-02-12] MEDS: NITROFURANTOIN (MACROBID) 100 MG CAP PO SCH ×2 (10:27→20:24)
[2020-02-13] VITALS (9 sets, daily range): BP systolic 92–124; BP diastolic 66–80; O2SAT 90–94
[2020-02-13] MEDS: IPRATROPIUM 0.5MG/ALBUTEROL 2.5MG INH SOL UD 3ML (DUONEB) INH SCH ×7 (00:29→20:00)
[2020-02-13 05:06] LABS: HEMOGLOBIN 11.3 g/dl (13.5-17.5); MEAN CORPUSCULAR HEMOGLOBIN 32.3 pg (27.0-33.0); MEAN CORPUSCULAR HGB CONC 31.4 g/dl (32.0-36.5); MEAN CORPUSCULAR VOLUME 102.9 fl (80.0-96.0); PLATELET COUNT, AUTOMATED 132 10^3/uL (150-450); WHITE BLOOD COUNT 11.3 10^3/uL (4.0-10.0)
[2020-02-13 05:26] LABS: BLOOD UREA NITROGEN 18 MG/DL (7-18); CALCIUM LEVEL 8.2 MG/DL (8.8-10.2); CARBON DIOXIDE LEVEL 30 MEQ/L (21-32); CHLORIDE LEVEL 103 MEQ/L (98-107); CREATININE FOR GFR 0.59 MG/DL (0.70-1.30); GLOMERULAR FILTRATION RATE > 60.0 (>49); GLUCOSE, FASTING 126 MG/DL (70-100); POTASSIUM SERUM 4.3 MEQ/L (3.5-5.1); SODIUM LEVEL 138 MEQ/L (136-145)
[2020-02-13] MEDS: SLF 3 ML SYR IV SCH ×3 (06:13→20:40)
[2020-02-13] MEDS: ADVAIR HFA 115/21MCG INHALER INH SCH ×2 (07:42→20:13)
[2020-02-13] MEDS: NITROFURANTOIN (MACROBID) 100 MG CAP PO SCH ×2 (08:47→20:40)
[2020-02-13] MEDS: PANTOPRAZOLE 40MG TAB (PROTONIX) PO SCH (08:47)
[2020-02-13] MEDS: FOLIC ACID 1 MG TAB PO SCH (08:47)
[2020-02-13] MEDS: ENOXAPARIN 40MG/0.4ML SYRINGE (J1650 PER 10MG) SC SCH (08:48)
[2020-02-13] MEDS ORDERED: predniSONE 20 MG TAB PO SCH ×2 (09:00)
[2020-02-13] MEDS: LORazepam 0.5 MG TAB PO PRN (17:26)
--- NOTE | 2020-02-13 21:58 | IPNPDOC ---
Subjective Date Seen The patient was seen on 02/13/20. Subjective Chief Complaint/HPI Continues to have severe SOB on minor exertions. Remains on vapotherm. Will start on Morphine for air hunger/ SOB and ativan for anxiety Objective Physical Examination General Exam: Positive: Moderate Distress, Other (thin, cachectic, chronically ill appearing) Eye Exam: Positive: PERRLA, Conjunctiva & lids normal, EOMI; Negative: Sclera icteric ENT Exam: Positive: Atraumatic, Pharynx Normal; Negative: Mucous membr. moist/pink (dry MM) Neck Exam: Positive: Supple; Negative: JVD, thyromegaly Chest Exam: Positive: Rales (bilateral), Diminished; Negative: Wheezing Heart Exam: Positive: Rate Normal, Regular Rhythm, Normal S1, Normal S2; Negative: Murmurs, Rubs Telemetry: Positive: No significant arrhythmia Abdomen Exam: Positive: Normal bowel sounds, Soft; Negative: Tenderness, Hepatospenomegaly Extremity Exam: Positive: Clubbing, Normal pulses; Negative: Cyanosis, Edema Skin Exam: Positive: Lesion (chin lesion, large, pustular like appearing of budding lobulated lesion with erythematous base) Neuro Exam: Positive: Normal Speech, Strength at 5/5 X4 ext, Sensation Intact, Cranial Nerves 3-12 NL Psych Exam: Positive: Mental status NL, Mood NL, Oriented x 3 Assessment /Plan Assessment 64 yo M with a 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 Because of poor performance status, systemic treatment has not be done. He has been developing cutaneous lesions on the thigh, chin, upper back, and scalp with biopsy of chin lesion 02/08/2020 showing invasive squamous cell carcinoma. He is currently admitted for increasing shortness of breath. CT chest angiography 02/09/2020 showed pulmonary nodules increased in size, consistent with progressive metastatic disease. 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 ativan for anxiety. will try to wean off vapotherm and aim for high flow oxygen 10 L. If he is comfortable with high flow oxygen he may be able to go into hospice house. DC telemetry. 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 dismal prognosis. 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 Possible CAP: empiric levaquin finished course SCX, BCx negative urine strep and legionella , procalcitonin in progress. Presumed COPD exacerbation: steroid being weaned. continue nebs, advair. GERD continue home protonix UTI with urostomy cath in place continue nitrofurantoin. DVT ppx: lovenox Plan/VTE VTE Prophylaxis Ordered?: Yes VS, I&O, 24H, [facility] Vital Signs/I&O Vital Signs Date Time Temp Pulse Resp B/P (MAP) Pulse Ox O2 Delivery O2 Flow Rate FiO2 02/13/20 12:00 98.5 112 22 124/78 (93) 90 HVNI-Vapotherm 40.0 100 I&O- Last 24 Hours up to 6 AM 02/13/20 06:00 Intake Total 1260 ml Output Total 1150 ml Balance 110 ml Laboratory Data 24H LABS Laboratory Tests 2 02/13/20 04:49: Nucleated Red Blood Cells % (auto) 0.0, Anion Gap 5L, Glomerular Filtration Rate > 60.0, Calcium Level 8.2L CBC/BMP Laboratory Tests 02/13/20 04:49 Microbiology Microbiology 02/10/20 Urine Culture - Final, Complete Escherichia Coli Enterococcus Faecalis 02/10/20 Gram Stain - Final, Complete 02/10/20 Sputum Culture - Final, Complete 02/09/20 Blood Culture - Preliminary, Resulted No Growth after 72 hours. All specime... 02/09/20 Respiratory Virus Panel (PCR) (BERTH[facility]) - Final, Complete 02/09/20 Blood Culture - Preliminary, Resulted No Growth after 72 hours. All specime... MONTSE JULIEN MD Feb 13, 2020 14:25
[2020-02-14] VITALS (41 sets, daily range): BP systolic 90–110; BP diastolic 65–75; O2SAT 66–92
[2020-02-14] MEDS: SLF 3 ML SYR IV SCH ×3 (03:09→22:01)
[2020-02-14] MEDS: IPRATROPIUM 0.5MG/ALBUTEROL 2.5MG INH SOL UD 3ML (DUONEB) INH SCH ×6 (04:00→20:00)
[2020-02-14] MEDS: LORazepam 0.5 MG TAB PO PRN ×2 (05:32→13:07)
[2020-02-14] MEDS: ENOXAPARIN 40MG/0.4ML SYRINGE (J1650 PER 10MG) SC SCH (09:38)
[2020-02-14] MEDS: PANTOPRAZOLE 40MG TAB (PROTONIX) PO SCH (09:38)
[2020-02-14] MEDS: FOLIC ACID 1 MG TAB PO SCH (09:38)
[2020-02-14] MEDS: NITROFURANTOIN (MACROBID) 100 MG CAP PO SCH ×2 (09:39→21:43)
[2020-02-14] MEDS: predniSONE 10 MG TAB PO SCH (09:39)
[2020-02-14] MEDS: ADVAIR HFA 115/21MCG INHALER INH SCH ×2 (11:27→20:07)
[2020-02-14 14:08] LABS: BODY FLUID CULTURE Not indicated. (.); LEGIONELLA ANTIGEN URINE Negative (Negative); ORGANISM ID Not indicated. (.); SPECIMEN SOURCE Urine (.); URINE STREP PNEUMONIAE ANTIGEN Negative (Negative)
--- NOTE | 2020-02-14 14:53 | IPNPDOC ---
Subjective Date Seen The patient was seen on 02/14/20. Subjective Chief Complaint/HPI Appears comfortable, used 2 doses of ativan and said was able to sleep some this morning. Remains on vapotherm. Has not decided about RELOCATION COUNSELOR yet. Objective Physical Examination General Exam: Positive: Moderate Distress, Other (thin, cachectic, chronically ill appearing) Eye Exam: Positive: PERRLA, Conjunctiva & lids normal, EOMI; Negative: Sclera icteric ENT Exam: Positive: Atraumatic, Pharynx Normal, Other ENT (bitemporal wasting); Negative: Mucous membr. moist/pink (dry MM) Neck Exam: Positive: Supple; Negative: JVD, thyromegaly Chest Exam: Positive: Rales (bilateral), Diminished; Negative: Wheezing Heart Exam: Positive: Rate Normal, Regular Rhythm, Normal S1, Normal S2; Negative: Murmurs, Rubs Telemetry: Positive: No significant arrhythmia Abdomen Exam: Positive: Normal bowel sounds, Soft; Negative: Tenderness, Hepatospenomegaly Extremity Exam: Positive: Clubbing, Normal pulses; Negative: Cyanosis, Edema Skin Exam: Positive: Lesion (chin lesion, large, pustular like appearing of b udding lobulated lesion with erythematous base) Neuro Exam: Positive: Normal Speech, Strength at 5/5 X4 ext, Sensation Intact, Cranial Nerves 3-12 NL Psych Exam: Positive: Mental status NL, Mood NL, Oriented x 3 Assessment /Plan Assessment 64 yo M with a 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 Because of poor performance status, systemic treatment has not be done. He has been developing cutaneous lesions on the thigh, chin, upper back, and scalp with biopsy of chin lesion 02/08/2020 showing invasive squamous cell carcinoma. He is currently admitted for increasing shortness of breath. CT chest angiography 02/09/2020 showed pulmonary nodules increased in size, consistent with progressive metastatic disease. 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 ativan for anxiety. will try to wean off vapotherm and aim for high flow oxygen 10 L. If he is comfortable with high flow oxygen he may be able to go into hospice house. 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 dismal prognosis. No treatment possible with his functional status Ongoing discussions with patient regarding transition to RELOCATION COUNSELOR. Ativan and morphine made available to the patient for anxiety and air hunger. Patient wants his oxygen saturations to be monitored . His sats are in mid 80s with vapotherm. Possible CAP: empiric levaquin finished course SCX, BCx negative urine strep and legionella negative procalcitonin in progress. Severe protein calorie malnutrition due to progressive cancer weight loss of 18 lbs in 3 months. BMI of 16 Presumed COPD exacerbation: steroid being weaned. continue nebs, advair. GERD continue home protonix UTI with urostomy cath in place continue nitrofurantoin. DVT ppx: lovenox Plan/VTE VTE Prophylaxis Ordered?: Yes VS, I&O, 24H, Fishbone Vital Signs/I&O Vital Signs Date Time Temp Pulse Resp B/P (MAP) Pulse Ox O2 Delivery O2 Flow Rate FiO2 02/14/20 12:00 98.7 122 20 99/65 (76) 87 HVNI-Vapotherm 30.0 100 I&O- Last 24 Hours up to 6 AM 02/14/20 06:00 Intake Total 600 ml Output Total 875 ml Balance -275 ml Laboratory Data Microbiology Microbiology 02/10/20 Urine Culture - Final, Complete Escherichia Coli Enterococcus Faecalis 02/10/20 Gram Stain - Final, Complete 02/10/20 Sputum Culture - Final, Complete 02/09/20 Blood Culture - Preliminary, Resulted No Growth after 72 hours. All specime... 02/09/20 Respiratory Virus Panel (PCR) ([facility]) - Final, Complete 02/09/20 Blood Culture - Preliminary, Resulted No Growth after 72 hours. All specime... MONTSE JULIEN MD Feb 14, 2020 14:53
[2020-02-14] MEDS: MORPHINE 10MG/0.5ML ORAL CONCENTRATE SOLUTION U/D SL PRN ×2 (15:12→21:45)
[2020-02-15] VITALS (10 sets, daily range): BP systolic 91–92; BP diastolic 62–67; O2SAT 86–94
[2020-02-15] MEDS: SLF 3 ML SYR IV SCH ×3 (06:00→20:40)
[2020-02-15] MEDS: ADVAIR HFA 115/21MCG INHALER INH SCH ×2 (07:40→17:57)
[2020-02-15] MEDS: IPRATROPIUM 0.5MG/ALBUTEROL 2.5MG INH SOL UD 3ML (DUONEB) INH SCH ×6 (07:41→22:54)
[2020-02-15] MEDS: PANTOPRAZOLE 40MG TAB (PROTONIX) PO SCH (09:40)
[2020-02-15] MEDS: predniSONE 10 MG TAB PO SCH (09:40)
[2020-02-15] MEDS: NITROFURANTOIN (MACROBID) 100 MG CAP PO SCH (09:40)
[2020-02-15] MEDS: LORazepam 0.5 MG TAB PO PRN ×2 (13:23→20:39)
[2020-02-15] MEDS: MORPHINE 10MG/0.5ML ORAL CONCENTRATE SOLUTION U/D SL PRN ×2 (13:42→20:39)
--- NOTE | 2020-02-15 14:10 | IPNPDOC ---
Subjective Date Seen The patient was seen on 02/15/20. Subjective Chief Complaint/HPI Patient feels more comfortable this morning. He took a dose of morphine and ativan last night helped him sleep and relax. Says ate breakfast. Has agreed to be transitiooned to CARBONIZER TESTER status. will continue to try and wean down oxygen as long as he remains comfortable with no visible resp distress. Will not monitor oxygen levels any more or any vitals any more. Objective Physical Examination General Exam: Positive: Alert, Cooperative, Mild Distress, Other (thin, cachectic, chronically ill appearing) Eye Exam: Positive: PERRLA, Conjunctiva & lids normal, EOMI; Negative: Sclera icteric ENT Exam: Positive: Atraumatic, Pharynx Normal, Other ENT (bitemporal wasting); Negative: Mucous membr. moist/pink (dry MM) Neck Exam: Positive: Supple; Negative: JVD, thyromegaly Chest Exam: Positive: Clear to auscultation, Diminished Heart Exam: Positive: Rate Normal, Regular Rhythm, Normal S1, Normal S2; Negative: Murmurs, Rubs Abdomen Exam: Positive: Normal bowel sounds, Soft, Other (urostomy in place); Negative: Tenderness, Hepatospenomegaly Extremity Exam: Positive: Clubbing; Negative: Cyanosis, Edema Skin Exam: Positive: Lesion (chin lesion, large, pustular like appearing of budding lobulated lesion with erythematous base) Neuro Exam: Positive: Normal Speech, Strength at 5/5 X4 ext, Sensation Intact, Cranial Nerves 3-12 NL Psych Exam: Positive: Memory Intact, Oriented x 3 Assessment /Plan Assessment 64 yo M with a 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 Because of poor performance status, systemic treatment has not be done. He has been developing cutaneous lesions on the thigh, chin, upper back, and scalp with biopsy of chin lesion 02/08/2020 showing invasive squamous cell carcinoma. He is currently admitted for increasing shortness of breath. CT chest angiography 02/09/2020 showed pulmonary nodules increased in size, consistent with progressive metastatic disease. He also has history of bladder CA s/p cystectomy with urostomy since 2007, granulomatosis with polyangiitis with long standing nodules, COPD and emphysema o and chronic resp failure on 5L NC at baseline Acute on chronic hypoxemic respiratory failure: 2/2 progression of lung involvement of the poorly differentiated non small cell cancer cancer on the back ground of COPD on vapotherm so cannot go into hospice morphine for air hunger. ativan for anxiety. If breathing is comfortable with morphine and ativan will try to wean off vapotherm and aim for high flow oxygen 10 L. If he is comfortable with high flow oxygen he may be able to go into hospice house. 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 dismal prognosis. No treatment possible with his functional status Ativan and morphine made available to the patient for anxiety and air hunger. Trevor has now accepted CARBONIZER TESTER measures. Unlikely Bacterial Pneumonia empiric levaquin finished course SCX, BCx negative urine strep and legionella negative procalcitonin 0.18 Severe protein calorie malnutrition due to progressive cancer weight loss of 18 lbs in 3 months. BMI of 16 End stage COPD with exacerbation steroid being weaned. continue nebs, advair. GERD continue home protonix UTI with urostomy bag in place no symptoms of UTI, probably colonizers stopped nitrofurantoin. DVT ppx: lovenox Plan/VTE VTE Prophylaxis Ordered?: Yes VS, I&O, 24H, Fishbone Vital Signs/I&O Vital Signs Date Time Temp Pulse Resp B/P (MAP) Pulse Ox O2 Delivery O2 Flow Rate FiO2 02/15/20 13:42 24 02/15/20 12:00 40.0 100 02/15/20 08:00 97.4 89 92/66 (75) 98 HVNI-Vapotherm I&O- Last 24 Hours up to 6 AM 02/15/20 07:00 Intake Total 120 ml Output Total 1125 ml Balance -1005 ml Laboratory Data Microbiology Microbiology 02/10/20 Urine Culture - Final, Complete Escherichia Coli Enterococcus Faecalis 02/10/20 Gram Stain - Final, Complete 02/10/20 Sputum Culture - Final, Complete 02/09/20 Blood Culture - Final, Complete NO GROWTH AFTER 5 DAYS 02/09/20 Respiratory Virus Panel (PCR) ([facility]) - Final, Complete 02/09/20 Blood Culture - Final, Complete NO GROWTH AFTER 5 DAYS MONTSE JULIEN MD Feb 15, 2020 14:10
[2020-02-16] MEDS: IPRATROPIUM 0.5MG/ALBUTEROL 2.5MG INH SOL UD 3ML (DUONEB) INH SCH ×5 (03:33→19:53)
[2020-02-16] MEDS: SLF 3 ML SYR IV SCH ×3 (06:08→20:55)
[2020-02-16] MEDS: ADVAIR HFA 115/21MCG INHALER INH SCH ×2 (07:30→19:53)
[2020-02-16] MEDS: MORPHINE 10MG/0.5ML ORAL CONCENTRATE SOLUTION U/D SL PRN ×4 (07:59→22:12)
[2020-02-16] MEDS: PANTOPRAZOLE 40MG TAB (PROTONIX) PO SCH (08:54)
[2020-02-16] MEDS ORDERED: predniSONE 10 MG TAB PO SCH (09:00)
[2020-02-16] MEDS: LORazepam 0.5 MG TAB PO PRN ×4 (09:40→22:12)
[2020-02-17] MEDS: IPRATROPIUM 0.5MG/ALBUTEROL 2.5MG INH SOL UD 3ML (DUONEB) INH SCH
--- NOTE | 2020-02-17 12:05 | DS.PDOC ---
Discharge Summary General Date of Admission Feb 09, 2020 at 19:55 Date of Discharge 02/17/20 Discharge Summary PROCEDURES PERFORMED DURING STAY: [None]. DISCHARGE DIAGNOSES: Acute on Chronic respiratory failure Severe protein calorie malnutrition Metastatic poorly differentiated Non small cell carcinoma to the lung with unclear primary source Poorly differentiated Squamous cell carcinoma of Anus End stage COPD with exacerbation. Bladder CA s/p cystectomy with urostomy since 2007, Granulomatosis with polyangiitis UTI with urostomy bag in place COMPLICATIONS/CHIEF COMPLAINT: SOB. 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 Because of poor performance status, systemic treatment has not be done. He has been developing cutaneous lesions on the thigh, chin, upper back, and scalp with biopsy of chin lesion 02/08/2020 showing invasive squamous cell carcinoma. He is currently admitted for increasing shortness of breath. CT chest angiography 02/09/2020 showed pulmonary nodules increased in size, consistent with progressive metastatic disease. He also has history of bladder CA s/p cystectomy with urostomy since 2007, granulomatosis with polyangiitis with long standing nodules, COPD and emphysema and chronic resp failure on 5L NC at baseline . He was admitted for Acute on chronic hypoxemic respiratory failure: 2/2 progression of lung involvement of the poorly differentiated non small cell cancer cancer on the back ground of COPD, COPD exacerbation, severe malnutrition. Underlying pneumonia was ruled out. Was seen by Oncology and was deemed not a candidate for any therapy for his rapidly progressing cancer. He was needing vapotherm with 40 L oxygen with that he was saturating around 90%. He was intially treated with a course of antibiotics and steroids, nebs with no improvement of his respiratory status. 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 Patient was started on Morphine and ativan for anxiety and air hunger. Patient peacefully on 02/17/20 at 1:30 am in his sleep. 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 patient was in VIDEOTAPE RECORDING ENGINEER status Severe protein calorie malnutrition End stage COPD with exacerbation GERD UTI with urostomy bag in place DISPOSITION: 20 . TIME SPENT ON DISCHARGE: 30 minutes. Vital Signs/I&Os Vital Signs Date Time Temp Pulse Resp B/P (MAP) Pulse Ox O2 Delivery O2 Flow Rate FiO2 02/17/20 01:00 HVNI-Vapotherm 35.0 100 02/16/20 22:42 18 02/15/20 20:57 92 02/15/20 08:00 97.4 89 92/66 (75) I&O- Last 24 Hours up to 6 AM 02/17/20 06:00 Intake Total 830 ml Output Total 250 ml Balance 580 ml Microbiology Microbiology 02/10/20 Urine Culture - Final, Complete Escherichia Coli Enterococcus Faecalis 02/10/20 Gram Stain - Final, Complete 02/10/20 Sputum Culture - Final, Complete 02/09/20 Blood Culture - Final, Complete NO GROWTH AFTER 5 DAYS 02/09/20 Respiratory Virus Panel (PCR) (BERTHA) - Final, Complete 02/09/20 Blood Culture - Final, Complete NO GROWTH AFTER 5 DAYS Discharge Medications Scheduled Folic Acid (Folic Acid) 1 Mg Tablet, 1 MG PO DAILY, (Reported) Pantoprazole Sodium (Pantoprazole Sodium) 40 Mg Tablet.dr, 40 MG PO DAILY, (Reported) Prednisone (Prednisone) 2.5 Mg Tablet, 2.5 MG PO DAILY, (Reported) Salmeterol/Fluticasone (Advair 250-50 Diskus) 1 Each Blst.w.dev, 1 INH BID, (Reported) Sulfamethoxazole/Trimethoprim (Bactrim Ds Tablet) 1 Tab Tab, 1 TAB PO 3XW, (Reported) WEDNESDAY, WEDNESDAY, WEDNESDAY Allergies Coded Allergies: No Known Allergies (Unverified , 02/15/13) MONTSE JULIEN MD Feb 17, 2020 12:05
--- NOTE | 2020-02-22 10:36 | IPN ---
DATE: 02/10/2020 Patient seen and examined at the bedside. Chart has been reviewed. Continues to be dyspneic on exertion. Continues to lose weight. Not a candidate for chemotherapy due to poor functional capacity. No chest pain, pressure, or tightness. No fever or chills overnight. No new complaints. Temperature 98.1, pulse 94, respiratory rate 18, blood pressure 96/66, 94% on 5 liters nasal cannula. GENERAL: Cachectic. Speaks in full sentences. Conversational dyspnea, five to six words. No tripod positioning. Patient has no jugular venous distention (JVD). No thyromegaly. No cervical lymphadenopathy. LUNGS: Diminished. Coarse breath sounds. Bilateral wheezing. HEART: S1, S2, sinus rhythm. ABDOMEN: Soft, nontender, nondistended. Positive bowel sounds. EXTREMITIES: No cyanosis, clubbing, or pitting edema. Sputum culture February 09: Oropharyngeal contamination. CT chest 02/09/2020: Extensive paraseptal and centrilobular emphysema. Nodule, right upper lobe, measuring 10 mm. Multiple lobular cavitary spiculated left lower lobe nodules, increased in size. No aortic dissection. Chronic obstructive pulmonary disease (COPD). ASSESSMENT AND PLAN: This is a 64-year-old male with a history of anal squamous cell carcinoma (CA) status post chemotherapy in 2020 in July with shrinkage of the lesion, perianal pelvic adenopathy with new pulmonary nodules, worsened in November, now confirmed to be poorly differentiated [id number] lung carcinoma of the lung with unknown primary. Medical oncologist, Dr. Posadas, recommended no treatment. Patient declined hospice. He also has a history of bladder CA, status post cystectomy and urostomy. Granulomatosis with polyangiitis with longstanding nodules and large skin lesions, suspected to be cutaneous metastasis, recently biopsied 2 days ago. History of chronic obstructive pulmonary disease (COPD), emphysema. Presented with worsening hypoxemia and shortness of breath. Placed on 5 liters nasal cannula and high-flow nasal cannula with some improvement. CURRENT ISSUES: 1. Acute on chronic hypoxic respiratory failure secondary to poorly differentiated progressive [id number] carcinoma of the lung of known primary with history of poorly differentiated squamous cell carcinoma (SCC) of the anus, status post chemotherapy and radiation. Bladder CA and prostate resection with urostomy. 2. COPD exacerbation. 3. Cutaneous metastatic lesions of the chin. 4. Reflux. 5. Pulmonary and cancer cachexia. 6. Severe protein-calorie malnutrition. PLAN: Patient is a poor candidate for chemotherapy due to poor functional status and ongoing protein-calorie malnutrition. He is currently requiring 5 liters of oxygen and is not a candidate for chemotherapy per his medical oncologist but has refused hospice. He is currently DO NOT RESUSCITATE/DO NOT INTUBATE. Will continue treatment for COPD exacerbation with Solu-Medrol and antibiotics. Sputum culture was with pharyngeal contamination. Patient is appropriate for hospice. Will need to discuss with the patient further regarding palliative care versus hospice care. MTDD
--- NOTE | 2020-02-22 10:37 | IPN ---
DATE: 02/11/2020 SUBJECTIVE: The patient remains extremely hypoxic, saturating at 81% despite nasal cannula oxygen, requiring Vapotherm overnight. No fever, chills or cough. Worsening shortness of breath. PHYSICAL EXAMINATION: VITAL SIGNS: Temperature is 98.8, pulse is 91, respiratory rate 20, blood pressure is 118/70, 97% on Vapotherm. FIO2 of 85%, flow rate of 30. GENERAL: Patient denies chest pain, pressure or tightness. Patient is awake, alert and oriented to person, place and time. HEENT: Patient has multiple nodular lesions on his chin, erythematous and ulcerative. NECK: No JVD. No thyromegaly. No cervical lymphadenopathy. LUNGS: Diminished, bilateral coarse breath sounds. HEART: S1 and S2, sinus rhythm. ABDOMEN: Soft, nontender. Positive bowel sounds. EXTREMITIES: No pitting edema. LABORATORY DATA: White count 9.3, hemoglobin 10, hematocrit 30, platelet count 129,000, sodium 134, potassium 4.3, chloride 102, bicarbonate 27, BUN 22, creatinine 0.6, glucose 147. Sputum culture: Contaminated oropharyngeal. Urine culture pending. Respiratory panel negative. COVID negative. Blood culture: No growth after 24 hours. ASSESSMENT AND PLAN: This is a 64-year-old male admitted on 02/09/2020 with progressive shortness of breath, history of poorly differential anal squamous cell carcinoma status post chemoradiation with shrinkage of lesion and perianal pelvic adenopathy with no pulmonary nodules, found to be poorly differentiated non-small CA of the lung with unknown primary. Patient declined Hospice. Per medical oncology not a chemo candidate. He also had a history of granulomatosis with polyangiitis with longstanding nodules and cutaneous mets. Biopsy done prior to presentation. COPD and emphysema, on oxygen at 5 liters at baseline. IMPRESSION: 1. Acute on chronic hypoxic respiratory failure. 2. Endstage COPD. 3. Non-small cell lung cancer with unknown primary. 4. History of bladder CA, status post cystectomy. 5. History of poorly differentiated anal squamous cell carcinoma status post chemoradiation and perianal and pelvic adenopathy. 6. Granulomatosis with polyangiitis with pulmonary nodules. 7. Cutaneous metastatic lesions on the chin. 8. Possible community acquired pneumonia. PLAN: Patient has worsening hypoxia despite full supportive therapy with Solu-Medrol, Ceftriaxone, supplemental oxygen, nebulizer treatments most likely due to progressive cancer. Recommendations for medical oncologist, Dr. Posadas, is to proceed with Hospice. Patient is resistant at this time. Will add doxycycline for atypical coverage. Patient will need family discussion along with the oncologist. Patient is approved for Hospice Care. PSS consulted. He is currently a DNR/DNI. [facility]
--- NOTE | 2020-02-22 10:38 | IPN ---
DATE: 02/12/2020 SUBJECTIVE: The patient continues to have dyspnea at rest, worse with exertion. No chest pain, pressure or tightness. Dr. Posadas had met with him yesterday and felt the patient is appropriate for comfort measures only in Hospice. Patient is accepting of Hospice but does not want to be comfort measures. He continues to want to have the Vapotherm, patient desaturates off the Vapotherm to 85%. PHYSICAL EXAMINATION: VITAL SIGNS: Temperature 98.8, pulse is 109, respiratory rate is 24, blood pressure is 122/76, 92% on room air. GENERAL: Patient is cachectic. Positive moderate respiratory distress, five to six word conversational dyspnea. NECK: No tracheal deviation. No JVD or thyromegaly. LUNGS: Diminished bilateral rhonchi, air entry is diminished. Positive use of respiratory accessory muscles. HEART: S1 and S2, sinus tachycardia. ABDOMEN: Soft, nontender and nondistended. Positive bowel sounds. EXTREMITIES: No cyanosis, clubbing or pitting edema. LABORATORY DATA: White count 11, hemoglobin 10, hematocrit 33, platelet count 142,000, sodium 138, potassium 4.3, chloride 104, bicarbonate 27, BUN 18, creatinine 0.69, glucose of 183. Microbiology: E. coli. E. faecalis, sensitive to Nitrofurantoin. ASSESSMENT AND PLAN: This is a 64-year-old with endstage lung cancer, severe hypoxic respiratory failure, with a history of Wegeners granulomatosis, bladder CA status post cystectomy with ileal and conduit and reflux, prostate cancer with prostatectomy with urostomy formation in 2007. IMPRESSION: 1. Metastatic lung lesions with poorly differentiated non-small cell carcinoma metastatic. 2. History of anal squamous cell CA. 3. Wegeners granulomatosis. 4. Bladder CA status post cystectomy with ileal conduit, prostatectomy with urostomy formation and cystectomy. 5. Chronic hypoxic respiratory, now on Vapotherm. 6. Urinary tract infection with E. coli and E. faecalis, sensitive to Nitrofurantoin. PLAN: Patient has progressive metastatic disease and is not a candidate for chemotherapy due to very poor functional status. Patient is appropriate for comfort measures but wants full treatment for now. Patient is on full supportive care with no significant improvement. Hospice has been consulted. [facility]
== END 2020-02-17 01:40 | disposition expired | DRG 189 ==
LOC: EDBD 15:47 → M ED 15:47 → M ED INP 19:55 → M PCU 19:55 → UNDOADMIN 19:55 → ENRESERV 20:24 → M PCU 02-10 00:09 → M MSPAV 02-15 16:16
PROVIDERS: ADMIT Internal Medicine; ATTEND Internal Medicine Nephrology
DX: J96.21 Acute and chronic respiratory failure with hypoxia (principal); E43 Unspecified severe protein-calorie malnutrition; M31.30 Wegener's granulomatosis without renal involvement; J44.0 Chronic obstructive pulmonary disease with (acute) lower respiratory infection; J44.1 Chronic obstructive pulmonary disease with (acute) exacerbation; C78.00 Secondary malignant neoplasm of unspecified lung; N39.0 Urinary tract infection, site not specified; C44.319 Basal cell carcinoma of skin of other parts of face; C44.510 Basal cell carcinoma of anal skin; Z51.5 Encounter for palliative care; Z66 Do not resuscitate; K21.9 Gastro-esophageal reflux disease without esophagitis; B95.2 Enterococcus as the cause of diseases classified elsewhere; B96.20 Unspecified Escherichia coli [E. coli] as the cause of diseases classified elsewhere; Z92.21 Personal history of antineoplastic chemotherapy; Z93.6 Other artificial openings of urinary tract status; Z99.81 Dependence on supplemental oxygen; Z20.828 Contact with and (suspected) exposure to other viral communicable diseases; Z85.51 Personal history of malignant neoplasm of bladder